=== PATIENT | female | born 1940 | race Caucasian/White ===

== ENCOUNTER → 2017-05-14 | Outpatient (CLI) | payer MEDICARE, BC ==
--- NOTE | 2017-05-16 09:19 | MM ---
Reason for exam: screening (asymptomatic). Last mammogram was performed 1 year and 8 months ago. History: Patient is postmenopausal. Family history of breast cancer in maternal grandmother at age 40. Physical Findings: A clinical breast exam by your physician is recommended on an annual basis and results should be correlated with mammographic findings. MG Screening Mammo w CAD Bilateral CC and MLO view(s) were taken. Prior study comparison: September 06, 2015, bilateral MG screening mammo w CAD. The breast tissue is heterogeneously dense. This may lower the sensitivity of mammography. No significant changes when compared with prior studies. ASSESSMENT: Benign, BI-RAD 2 RECOMMENDATION: Routine screening mammogram of both breasts in 1 year.
== END | disposition home or self-care (01) ==
LOC: RADMAMWWP 13:03
PROVIDERS: ATTEND Internal Medicine Geriatric Medicine
DX: Z12.31 Encounter for screening mammogram for malignant neoplasm of breast (principal)

== ENCOUNTER 2017-06-25 14:27 | Inpatient (IN) | payer MEDICARE, BC ==
[2017-06-25] MEDS ORDERED: SODIUM CHLORIDE 0.9% 1,000 ML IV STA (15:13)
--- NOTE | 2017-06-25 15:18 | ED ---
General Adult HPI - General Source: patient, family, RN notes reviewed Mode of arrival: wheelchair Limitations: no limitations <Wander Betancur - Last Filed: 06/25/17 15:14> <Wale Tenorio - Last Filed: 06/25/17 18:55> - General Chief complaint: Dizziness Stated complaint: abdominal pain/near syncope-sent by Dr. Bojorquez Time Seen by Provider: 06/25/17 15:04 - History of Present Illness Initial comments: Patient is a pleasant 76-year-old female presenting to the emergency department following 2 near-syncopal episodes. First episode occurred this morning following shower. Second episode occurred in the doctor's office. Patient feels symptom-free at this time. Patient does get dizzy with upright position. Patient has had 2 episodes of diarrhea. No vomiting. Family is concerned the patient has been more concerned since her knee surgery a few weeks ago. Patient has not been taking her medications. Patient has not been eating much. Patient has not been drinking much. Patient denies any chest pain or dyspnea. No abdominal pain. Patient states she did not fully pass out. (Wander Betancur) - Related Data Home Medications Medication Instructions Recorded Confirmed Aspirin 81 mg PO DAILY 10/28/14 06/25/17 Carvedilol [Coreg] 6.25 mg PO BID 10/28/14 06/25/17 Hydrochlorothiazide 25 mg PO DAILY 10/28/14 06/25/17 Simvastatin [Zocor] 20 mg PO W/SUPPER 10/28/14 06/25/17 Allergies Allergy/AdvReac Type Severity Reaction Status Date / Time Iodine and Iodide Containing Allergy Unknown Verified 06/25/17 15:08 Produc Penicillins Allergy Rash/Hives Verified 06/25/17 15:08 Sulfa (Sulfonamide Allergy Rash/Hives Verified 06/25/17 15:08 Antibiotics) codeine AdvReac Nausea & Verified 06/25/17 15:08 Vomiting Pain meds AdvReac Unknown Uncoded 06/25/17 15:08 Review of Systems ROS Other: All systems not noted in ROS Statement are negative. Constitutional: Denies: fever Eyes: Denies: eye pain ENT: Denies: ear pain Respiratory: Denies: cough, dyspnea Cardiovascular: Denies: chest pain Endocrine: Denies: fatigue Gastrointestinal: Reports: diarrhea. Denies: abdominal pain, nausea Genitourinary: Denies: dysuria Musculoskeletal: Denies: back pain Skin: Denies: rash <Wander Betancur Last Filed: 06/25/17 15:14> ROS Other: All systems not noted in ROS Statement are negative. <Wale Tenorio - Last Filed: 06/25/17 18:55> ROS Statement: Those systems with pertinent positive or pertinent negative responses have been documented in the HPI. Past Medical History Past Medical History: Hypertension Additional Past Medical History / Comment(s): heart murmer,arthritis, concussion History of Any Multi-Drug Resistant Organisms: None Reported Past Surgical History: Back Surgery, Hysterectomy, Joint Replacement, Tonsillectomy Additional Past Surgical History / Comment(s): disectomy, cataracts Additional Past Anesthesia/Blood Transfusion Reaction / Comment(s): wakes up very slow, "does not take a lot" Past Psychological History: No Psychological Hx Reported Smoking Status: Never smoker Past Alcohol Use History: None Reported Past Drug Use History: None Reported - Past Family History Brother(s) Family Medical History: Cancer <Wander Betancur Filed: 06/25/17 15:14> General Exam Limitations: no limitations General appearance: alert, in no apparent distress Head exam: Present: atraumatic Eye exam: Present: normal appearance, PERRL, EOMI. Absent: nystagmus ENT exam: Present: normal oropharynx Neck exam: Present: normal inspection Respiratory exam: Present: normal lung sounds bilaterally Cardiovascular Exam: Present: regular rate, normal rhythm Expanded Peripheral pulses: 2+: Radial (R), Radial (L), Dorsalis Pedis (R), Dorsalis Pedis (L) GI/Abdominal exam: Present: soft. Absent: distended, tenderness Extremities exam: Present: normal inspection. Absent: pedal edema, calf tenderness Neurological exam: Present: alert, CN II-XII intact. Absent: motor sensory deficit Expanded Patient oriented to: Present: person, place. Absent: time (Believes the month is May.) Speech: Present: fluid speech Cranial nerves: EOM's Intact: Normal Sensory exam: Upper Extremity Light Touch: Normal, Lower Extremity Light Touch: Normal Motor strength exam: RUE: 5, LUE: 5, RLE: 5, LLE: 5 Psychiatric exam: Present: normal affect, normal mood Skin exam: Present: normal color <Wander Betancur Filed: 06/25/17 15:14> Vital Signs 06/25/17 06/25/17 06/25/17 14:31 15:59 16:32 Temperature 98.2 F Pulse Rate 69 67 Pulse Rate [ 70 Sitting Field Trainer] Pulse Rate [ 84 Standing Field Trainer ] Pulse Rate [ 68 Supine Field Trainer] Respiratory 18 19 Rate Blood Pressure 185/115 188/79 Blood Pressure 190/77 [Right Arm Sitting] Blood Pressure 196/80 [Right Arm Standing] Blood Pressure 168/74 [Right Arm Supine] O2 Sat by Pulse 98 99 Oximetry 06/25/17 06/25/17 17:30 18:44 Temperature Pulse Rate 66 72 Pulse Rate [ Sitting Field Trainer] Pulse Rate [ Standing Field Trainer ] Pulse Rate [ Supine Field Trainer] Respiratory 19 Rate Blood Pressure 184/78 186/96 Blood Pressure [Right Arm Sitting] Blood Pressure [Right Arm Standing] Blood Pressure [Right Arm Supine] O2 Sat by Pulse 99 Oximetry EKG Findings - EKG Comments: EKG Findings:: Normal sinus rhythm 67. MA 176. QRS 88. QT 418. QTC 441. Normal axis. Normal QRS. No acute ST change. <Wander Betancur - Last Filed: 06/25/17 15:14> Medical Decision Making <Wander Betancur - Last Filed: 06/25/17 15:14> - Lab Data Result diagrams: 06/25/17 14:58 06/25/17 14:58 - Radiology Data Radiology results: report reviewed (I did review the imaging and reports no acute evidence of PE.), image reviewed <Wale Tenorio - Last Filed: 06/25/17 18:55> - Medical Decision Making the patient was endorsed to me by Dr. Betancur at our shift change pending CAT scan. Patient's CAT scan shows no acute findings I did discuss the findings with the patient family members as well as with the covering physician for Dr. Bojorquez patient will be admitted for evaluation of near-syncope weakness and dehydration patient does have some hyponatremia. (Wale Tenorio) - Lab Data Lab Results 06/25/17 06/25/17 06/25/17 Range/Units 14:58 14:58 14:58 WBC 9.8 (3.8-10.6) k/uL RBC 4.01 (3.80-5.40) m/uL Hgb 12.0 (11.4-16.0) gm/dL Hct 35.6 (34.0-46.0) % MCV 88.9 (80.0-100.0) fL MCH 30.0 (25.0-35.0) pg MCHC 33.7 (31.0-37.0) g/dL RDW 15.0 (11.5-15.5) % Plt Count 337 (150-450) k/uL Neutrophils % 76 % Lymphocytes % 14 % Monocytes % 7 % Eosinophils % 1 % Basophils % 0 % Neutrophils # 7.5 (1.3-7.7) k/uL Lymphocytes # 1.3 (1.0-4.8) k/uL Monocytes # 0.7 (0-1.0) k/uL Eosinophils # 0.1 (0-0.7) k/uL Basophils # 0.0 (0-0.2) k/uL PT (9.0-12.0) sec INR (<1.2) APTT (22.0-30.0) sec D-Dimer (<0.60) mg/L FEU Sodium 128 L (137-145) mmol/L Potassium 3.4 L (3.5-5.1) mmol/L Chloride 94 L (98-107) mmol/L Carbon Dioxide 24 (22-30) mmol/L Anion Gap 10 mmol/L BUN 11 (7-17) mg/dL Creatinine 0.66 (0.52-1.04) mg/dL Est GFR (MDRD) Af Amer >60 (>60 ml/min/1.73 sqM) Est GFR (MDRD) Non-Af >60 (>60 ml/min/1.73 sqM) Glucose 101 H (74-99) mg/dL Calcium 9.3 (8.4-10.2) mg/dL Total Bilirubin 0.6 (0.2-1.3) mg/dL AST 27 (14-36) U/L ALT 51 (9-52) U/L Alkaline Phosphatase 99 (38-126) U/L Total Creatine Kinase 40 (30-135) U/L CK-MB (CK-2) 0.7 (0.0-2.4) ng/mL CK-MB (CK-2) Rel Index 1.8 Troponin I <0.012 (0.000-0.034) ng/mL Total Protein 6.5 (6.3-8.2) g/dL Albumin 4.0 (3.5-5.0) g/dL Urine Color Urine Appearance (Clear) Urine pH (5.0-8.0) Ur Specific [place] (1.001-1.035) Urine Protein (Negative) Urine Glucose (UA) (Negative) Urine Ketones (Negative) Urine Blood (Negative) Urine Nitrite (Negative) Urine Bilirubin (Negative) Urine Urobilinogen (<2.0) mg/dL Ur Leukocyte Esterase (Negative) 06/25/17 06/25/17 Range/Units 14:58 17:44 WBC (3.8-10.6) k/uL RBC (3.80-5.40) m/uL Hgb (11.4-16.0) gm/dL Hct (34.0-46.0) % MCV (80.0-100.0) fL MCH (25.0-35.0) pg MCHC (31.0-37.0) g/dL RDW (11.5-15.5) % Plt Count (150-450) k/uL Neutrophils % % Lymphocytes % % Monocytes % % Eosinophils % % Basophils % % Neutrophils # (1.3-7.7) k/uL Lymphocytes # (1.0-4.8) k/uL Monocytes # (0-1.0) k/uL Eosinophils # (0-0.7) k/uL Basophils # (0-0.2) k/uL PT 10.9 (9.0-12.0) sec INR 1.1 (<1.2) APTT 23.9 (22.0-30.0) sec D-Dimer 5.76 H (<0.60) mg/L FEU Sodium (137-145) mmol/L Potassium (3.5-5.1) mmol/L Chloride (98-107) mmol/L Carbon Dioxide (22-30) mmol/L Anion Gap mmol/L BUN (7-17) mg/dL Creatinine (0.52-1.04) mg/dL Est GFR (MDRD) Af Amer (>60 ml/min/1.73 sqM) Est GFR (MDRD) Non-Af (>60 ml/min/1.73 sqM) Glucose (74-99) mg/dL Calcium (8.4-10.2) mg/dL Total Bilirubin (0.2-1.3) mg/dL AST (14-36) U/L ALT (9-52) U/L Alkaline Phosphatase (38-126) U/L Total Creatine Kinase (30-135) U/L CK-MB (CK-2) (0.0-2.4) ng/mL CK-MB (CK-2) Rel Index Troponin I (0.000-0.034) ng/mL Total Protein (6.3-8.2) g/dL Albumin (3.5-5.0) g/dL Urine Color Colorless Urine Appearance Clear (Clear) Urine pH 7.0 (5.0-8.0) Ur Specific [place] 1.017 (1.001-1.035) Urine Protein Negative (Negative) Urine Glucose (UA) Negative (Negative) Urine Ketones 1+ H (Negative) Urine Blood Negative (Negative) Urine Nitrite Negative (Negative) Urine Bilirubin Negative (Negative) Urine Urobilinogen <2.0 (<2.0) mg/dL Ur Leukocyte Esterase Negative (Negative) Disposition <Wander Betancur - Last Filed: 06/25/17 15:14> <Wale Tenorio - Last Filed: 06/25/17 18:55> Clinical Impression: Near syncope, Dehydration, Hyponatremia Disposition: ADMITTED IP TO THIS HOSP Condition: Stable Referrals: Manjeet Bojorquez MD [Primary Care Provider] - 1-2 days
[2017-06-25 15:36] LABS: Basophils % (A) 0 %; CH 30.1; Eosinophils # (A) 0.1 k/uL (0-0.7); Eosinophils % (A) 1 %; HCT 35.6 % (34.0-46.0); HDW 3.12; Luc # (Auto) 0.18; Luc % (Auto) 2; Lymphocytes # (A) 1.3 k/uL (1.0-4.8); Lymphocytes % (A) 14 %; MCHC 33.7 g/dL (31.0-37.0); MCV 88.9 fL (80.0-100.0); Mean Platelet Volume 7.8; Monocytes # (A) 0.7 k/uL (0-1.0); Monocytes % (A) 7 %; Neutrophils # (A) 7.5 k/uL (1.3-7.7); Neutrophils % (A) 76 %; RBC 4.01 m/uL (3.80-5.40); WBC 9.8 k/uL (3.8-10.6)
[2017-06-25 15:45] LABS: ALT 51 U/L (9-52); AST 27 U/L (14-36); Alkaline Phosphatase 99 U/L (38-126); Anion Gap 10 mmol/L; Blood Urea Nitrogen 11 mg/dL (7-17); Calcium 9.3 mg/dL (8.4-10.2); Carbon Dioxide 24 mmol/L (22-30); Chloride 94 mmol/L (98-107); Glucose 101 mg/dL (74-99); Non-African American GFR(MDRD) >60 (>60 ml/min/1.73 sqM); Potassium 3.4 mmol/L (3.5-5.1); Sodium 128 mmol/L (137-145); Total Bilirubin 0.6 mg/dL (0.2-1.3); Total Protein 6.5 g/dL (6.3-8.2)
[2017-06-25 15:50] LABS: INR 1.1 (<1.2); Partial Thromboplastin Time 23.9 sec (22.0-30.0); Prothrombin Time 10.9 sec (9.0-12.0)
[2017-06-25 15:52] LABS: Creatine Kinase 40 U/L (30-135)
[2017-06-25 16:05] LABS: Creatine Kinase MB 0.7 ng/mL (0.0-2.4); Troponin I <0.012 ng/mL (0.000-0.034)
--- NOTE | 2017-06-25 16:23 | CT ---
EXAMINATION TYPE: CT brain wo con DATE OF EXAM: 06/25/2017 COMPARISON: 10/09/2015 HISTORY: Syncope. CT DLP: 945.50 mGycm. Automated Exposure Control for Dose Reduction was Utilized. TECHNIQUE: CT scan of the head is performed without contrast. FINDINGS: Multiple patchy areas of hypoattenuation are seen within the peripheral periventricular a nd subcortical white matter. Few these are more confluent within the left frontal lobe and within the right monreal radiata related to old lacunar injuries. No suspicious extra axial fluid collection is identified. There is symmetric prominence of the peripheral sulci and ventricular system compatible w ith age-related volume loss. No evidence of intracranial hemorrhage, midline shift or mass effect is identified. There is atherosclerosis of the intracranial vasculature. Calvarium is intact. Paranasal sinuses are well aerated. Slight rightward nasal septal deviation is incidentally noted. Mastoid air cells are also well aerated. IMPRESSION: 1. No acute intracranial hemorrhage, mass effect, or midline shift is seen. 2. Moderate burden nonspecific white matter changes old lacunar injuries of the left frontal lobe and right frontal monreal radiata. 3. Age-related supratentorial volume loss.
[2017-06-25] MEDS ORDERED: FAMOTIDINE 20 MG/2 ML VIAL IV STA (16:31)
[2017-06-25] MEDS ORDERED: diphenhydrAMINE 50 MG/ML 1 ML VIAL IVP STA (16:31)
[2017-06-25] MEDS ORDERED: RX INFO: IV CONTRAST WAS GIVEN 1 EACH MISC MISCELLANE PRN (16:31)
[2017-06-25] MEDS ORDERED: methylPREDNISolone SOD SUCCI 125 MG/2 ML VIAL IV STA (16:31)
--- NOTE | 2017-06-25 16:31 | XR ---
EXAMINATION TYPE: XR chest 2V DATE OF EXAM: 06/25/2017 COMPARISON: 11/19/2012 HISTORY: Syncope TECHNIQUE: Frontal and lateral views of the chest are obtained. FINDINGS: There is no focal air space opacity, pleural effusion, or pneumothorax seen. The cardiac silhouette size is within normal limits. The osseous structures are intact. There is generalized os seous demineralization present. Prominence of the aortic arch is similar in comparison to the prior e xam of 2012. IMPRESSION: No acute cardiopulmonary process.
--- NOTE | 2017-06-25 17:16 | CT ---
EXAMINATION TYPE: CT angio chest DATE OF EXAM: 06/25/2017 5:09 PM COMPARISON: NONE HISTORY: Elevated d-dimer. CT DLP: 162.80 mGycm Automated exposure control for dose reduction was used. CONTRAST: CTA scan of the thorax is performed with IV Contrast, patient injected with 76 mL of Omnipaque 350, p ulmonary embolism protocol. There are 3-D post processed images.. FINDINGS: There is some pleural thickening at the lung apices. There is no evidence of a pulmonary mass. Heart is enlarged. There is no pleural effusion. There is no pericardial effusion. I see no filling defects in the pulmonary arteries. Thoracic aorta is atheromatous. Ascending aorta m easures 3.4 cm. There is no evidence of aortic dissection. There is a 2.5 cm rounded hypodense area i n the left lobe of the liver that is nonspecific. IMPRESSION: CARDIOMEGALY. ATHEROSCLEROTIC VASCULAR DISEASE. NO EVIDENCE OF PULMONARY EMBOLISM. BILATERAL APICAL P LEURAL SCARRING. ROUNDED HYPODENSE LIVER LESION OF UNCERTAIN SIGNIFICANCE.
[2017-06-25 17:55] LABS: Appearance,Urine Clear (Clear); Bilirubin,Urine Negative (Negative); Glucose,Urine (UA) Negative (Negative); Ketones,Urine 1+ (Negative); Leukocyte Esterase,Urine Negative (Negative); Nitrite,Urine Negative (Negative); Protein,Urine Negative (Negative); Specific Gravity,Urine 1.017 (1.001-1.035); UA Billing (MACRO vs. MICRO) CHEM; Urobilinogen,Urine <2.0 mg/dL (<2.0)
[2017-06-25] MEDS ORDERED: NALOXONE 0.4 MG/ML 1 ML VIAL IV PRN (18:55)
[2017-06-25] MEDS ORDERED: SODIUM CHLORIDE 0.9% 1,000 ML IV ONE (19:37)
[2017-06-25] MEDS ORDERED: cloNIDine HCL 0.1 MG TAB PO STA (20:16)
[2017-06-25] MEDS: CARVEDILOL 6.25 MG TAB PO SCH (21:29)
[2017-06-25] MEDS: SODIUM CHLORIDE 0.9% 1,000 ML IV SCH (21:30)
[2017-06-25 22:14] LABS: Anion Gap 8 mmol/L; Blood Urea Nitrogen 10 mg/dL (7-17); Calcium 9.1 mg/dL (8.4-10.2); Carbon Dioxide 23 mmol/L (22-30); Chloride 97 mmol/L (98-107); Glucose 153 mg/dL (74-99); Non-African American GFR(MDRD) >60 (>60 ml/min/1.73 sqM); Potassium 3.4 mmol/L (3.5-5.1); Sodium 128 mmol/L (137-145)
[2017-06-26] MEDS: CARVEDILOL 6.25 MG TAB PO SCH ×2 (08:55→20:48)
[2017-06-26] MEDS: ENOXAPARIN 40 MG/0.4 ML SYRINGE SQ SCH (08:55)
[2017-06-26] MEDS: ASPIRIN 81 MG PO SCH (08:55)
[2017-06-26] MEDS ORDERED: HYDROCHLOROTHIAZIDE 25 MG TAB PO SCH (09:00)
--- NOTE | 2017-06-26 10:28 | ECHOF ---
Referral Reason:syncope MEASUREMENTS -------- HEIGHT: 162.6 cm WEIGHT: 52.6 kg BP: 152/67 IVSd: 1.1 cm (0.6 - 1.1) LVIDd: 3.7 cm (3.9 - 5.3) LVPWd: 1.1 cm (0.6 - 1.1) IVSs: 1.5 cm LVIDs: 2.6 cm LVPWs: 1.3 cm LA Diam: 3.5 cm (2.7 - 3.8) LAESV Index (A-L): 32.12 ml/m Ao Diam: 3.0 cm (2.0 - 3.7) AV Cusp: 2.1 cm (1.5 - 2.6) EPSS: 0.2 cm MV E Jarret: 0.77 m/s MV DecT: 264 ms MV A Jarret: 0.78 m/s MV E/A Ratio: 0.99 AR PHT: 323 ms RAP: 5.00 mmHg RVSP: 32.53 mmHg MV EF SLOPE: 58.25 mm/s (70 - 150) MV EXCURSION: 1.03 cm (> 18.000) FINDINGS -------- Sinus rhythm. This was a technically good study. The left ventricular size is normal. Left ventricular wall thickness is normal. Overall left vent ricular systolic function is normal with, an EF between 55 - 60 %. The right ventricle is normal in size. LA is midly dilated 29-33ml/m2. The right atrium is normal in size. The aortic valve is trileaflet and appears structurally normal. There is moderate aortic regurgitat ion. The mitral valve is normal. Mild mitral regurgitation is present. Moderate tricuspid regurgitation present. Right ventricular systolic pressure is normal at < 35 mmH g. Trace/mild (physiologic) pulmonic regurgitation. The aortic root size is normal. Normal inferior vena cava with normal inspiratory collapse consistent with estimated right atrial pre ssure of 5 mmHg. There is no pericardial effusion. CONCLUSIONS -------- 1. Sinus rhythm. 2. This was a technically good study. 3. Left ventricular wall thickness is normal. 4. Overall left ventricular systolic function is normal with, an EF between 55 - 60 %. 5. LA is midly dilated 29-33ml/m2. 6. The aortic valve is trileaflet and appears structurally normal. 7. There is moderate aortic regurgitation. 8. Mild mitral regurgitation is present. 9. Moderate tricuspid regurgitation present. 10. Right ventricular systolic pressure is normal at < 35 mmHg. 11. Trace/mild (physiologic) pulmonic regurgitation. 12. The aortic root size is normal. 13. Normal inferior vena cava with normal inspiratory collapse consistent with estimated right atrial pressure of 5 mmHg. 14. There is no pericardial effusion. STORE CONSULTANT: JUAN A Barber
[2017-06-26] MEDS ORDERED: RX INFO: IV CONTRAST WAS GIVEN 1 EACH MISC MISCELLANE PRN (12:41)
[2017-06-26] MEDS ORDERED: methylPREDNISolone SOD SUCCI 125 MG/2 ML VIAL IV STA (12:45)
[2017-06-26] MEDS ORDERED: FAMOTIDINE 20 MG/2 ML VIAL IV STA (12:45)
[2017-06-26] MEDS ORDERED: diphenhydrAMINE 50 MG/ML 1 ML VIAL IVP STA (12:45)
[2017-06-26 13:28] LABS: ALT 47 U/L (9-52); AST 24 U/L (14-36); Alkaline Phosphatase 94 U/L (38-126); Anion Gap 11 mmol/L; Blood Urea Nitrogen 11 mg/dL (7-17); Calcium 9.2 mg/dL (8.4-10.2); Carbon Dioxide 23 mmol/L (22-30); Chloride 100 mmol/L (98-107); Glucose 106 mg/dL (74-99); Non-African American GFR(MDRD) >60 (>60 ml/min/1.73 sqM); Potassium 3.6 mmol/L (3.5-5.1); Sodium 134 mmol/L (137-145); Total Bilirubin 0.6 mg/dL (0.2-1.3); Uric Acid 3.5 mg/dL (3.7-7.4)
[2017-06-26] MEDS: SODIUM CHLORIDE 0.9% 1,000 ML IV SCH ×2 (13:50→20:48)
--- NOTE | 2017-06-26 15:35 | P.HPIM ---
History of Present Illness H&P Date: 06/26/17 Chief Complaint: Near syncope 76 years old female with past medical history of hypertension, hyperlipidemia, history of concussion and short-term memory loss presents with 2 episodes of near syncope. The first episode occurred in shower yesterday followed by another episode at Dr. Bojorquez's office. On my evaluation patient was symptom-free. Family bedside has noticed that patient has worsening confusion for the past 2 weeks. Patient underwent left knee replacement 2 weeks ago, family has noticed increased confusion and worsening short-term memory loss for the past 1 week. Patient endorses intermittent epigastric abdominal pain associated with nausea and intermittent diarrhea. Family states patient forgets to eat or drink. She lives alone and her come by to walk the dog. Patient does not come out of her house but does state that she walks her dog every day which is negated by the family. Patient has to be reminded about the previous incidences and has been seen confabulating multiple times during the encounter. Labs in the ER suggested a sodium of 128, potassium 2.4, glucose of 101, serum osmolarity 272, normal uric acid level. Urinalysis is negative for any infection. Echo ordered suggested an EF of 55-60 % with moderate aortic regurgitation and moderate tricuspid regurgitation with normal pressures of the right ventricle. Patient underwent CTA of the chest to rule out pulmonary embolism which was negative. Brain CT suggestive of moderate border nonspecific white matter changes which correlate with old left no injuries on the left frontal lobe and right frontal monreal radiata. EKG is normal with normal troponin. Orthostatic vitals were ordered. Patient's presentation appears to be related to dehydration but since all like a new injuries present in the CT head and patient's multiple episodes of near syncope , CTA head and neck ordered to rule out any plaque deposition. Neurology consulted Review of Systems Constitutional: Denies chills, Denies fever, Denies lethargy, Denies malaise, Denies poor appetite, Denies weakness, Denies weight loss Eyes: denies decreased vision, denies diplopia, denies discharge, denies pain Ears: deny: decreased hearing Ears, nose, mouth and throat: Denies dental pain, Denies headache, Denies nasal discharge, Denies nose pain Cardiovascular: Denies chest pain, Denies decreased exercise tolerance, Denies edema, Denies high blood pressure, Denies irregular heart beat, Denies palpitations, Denies paroxysmal nocturnal dyspnea, Denies rapid heart beat, Denies shortness of breath Respiratory: Denies congestion, Denies cough, Denies cough with sputum, Denies dyspnea, Denies home oxygen, Denies wheezing Gastrointestinal: Denies abdominal pain, Denies change in bowel habits, Denies coffee ground emesis, Denies early satiety, Denies excessive gas, Denies heartburn, Denies hematemesis, Denies hematochezia, Denies loss of appetite, Denies nausea, Denies vomiting Genitourinary: Denies dysuria, Denies flank pain, Denies kidney stones, Denies menorrhagia, Denies urgency, Denies urinary frequency Musculoskeletal: Denies gait dysfunction, Denies limitation of motion, Denies morning stiffness, Denies muscle cramps Integumentary: Denies rash, Denies wounds, Denies brittle nails, Denies change in hair/nails, Denies darkening of skin Neurological: Denies balance difficulties, Denies change in speech, Denies double vision, Denies gait dysfunction, Denies loss of vision, Denies motor disturbance, Denies numbness, Denies paralysis, Denies paresthesias, Denies seizures Psychiatric: Denies anxiety, Denies depression Endocrine: Denies excessive sweating, Denies excessive thirst, Denies high blood sugars, Denies palpitations Hematologic/Lymphatic: Denies easy bruising, Denies lymphadenopathy Past Medical History Past Medical History: Hypertension Additional Past Medical History / Comment(s): heart murmer,arthritis, concussion History of Any Multi-Drug Resistant Organisms: None Reported Past Surgical History: Back Surgery, Hysterectomy, Joint Replacement, Tonsillectomy Additional Past Surgical History / Comment(s): disectomy, cataracts Additional Past Anesthesia/Blood Transfusion Reaction / Comment(s): wakes up very slow, "does not take a lot" Past Psychological History: No Psychological Hx Reported Smoking Status: Never smoker Past Alcohol Use History: None Reported Past Drug Use History: None Reported - Past Family History Brother(s) Family Medical History: Cancer Medications and Allergies Home Medications Medication Instructions Recorded Confirmed Type Aspirin 81 mg PO DAILY 10/28/14 06/25/17 History Carvedilol [Coreg] 6.25 mg PO BID 10/28/14 06/25/17 History Hydrochlorothiazide 25 mg PO DAILY 10/28/14 06/25/17 History Simvastatin [Zocor] 20 mg PO W/SUPPER 10/28/14 06/25/17 History Allergies Allergy/AdvReac Type Severity Reaction Status Date / Time Iodine and Iodide Containing Allergy Unknown Verified 06/25/17 15:08 Produc Penicillins Allergy Rash/Hives Verified 06/25/17 15:08 Sulfa (Sulfonamide Allergy Rash/Hives Verified 06/25/17 15:08 Antibiotics) codeine AdvReac Nausea & Verified 06/25/17 15:08 Vomiting Pain meds AdvReac Unknown Uncoded 06/25/17 15:08 Physical Exam Vitals: Vital Signs Temp Pulse Pulse Pulse Pulse Resp BP 06/26/17 08:00 16 06/26/17 07:00 97.8 F 81 16 06/25/17 23:01 97.3 F L 62 18 06/25/17 21:26 96.5 F L 66 18 06/25/17 20:07 98.7 F 67 16 192/79 06/25/17 18:44 72 186/96 06/25/17 17:30 66 19 184/78 06/25/17 16:32 67 19 188/79 06/25/17 15:59 70 84 68 06/25/17 14:31 98.2 F 69 18 185/115 BP BP BP Pulse Ox 06/26/17 08:00 06/26/17 07:00 162/60 98 06/25/17 23:01 152/67 97 06/25/17 21:26 135/68 98 06/25/17 20:07 99 06/25/17 18:44 06/25/17 17:30 99 06/25/17 16:32 99 06/25/17 15:59 190/77 196/80 168/74 06/25/17 14:31 98 Intake and Output 06/25/17 06/26/17 06/26/17 22:59 06:59 14:59 Intake Total 480 Balance 480 Intake: Oral 480 Other: Voiding Method Toilet # Voids 3 Weight 53 kg Patient Weight 06/27/17 06:59 Weight 53 kg - Constitutional General appearance: cooperative, no acute distress, obese - EENT Eyes: anicteric sclerae, PERRLA, normal appearance, no nystagmus ENT: hearing grossly normal - Neck Neck: no lymphadenopathy, normal ROM, no other, no rigidity, no stridor, no thyromegaly - Respiratory Respiratory: bilateral: CTA, negative: diminished, dullness, rales, rhonchi - Cardiovascular Rhythm: regular Heart sounds: normal: S1, S2 Abnormal Heart Sounds: no systolic murmur, no diastolic murmur, no rub, no S3 Gallop, no S4 Gallop, no click, no other - Gastrointestinal General gastrointestinal: normal bowel sounds, soft - Integumentary Integumentary: no rash - Neurologic Neurologic: CNII-XII intact no focal deficit - Musculoskeletal Musculoskeletal: gait normal, strength equal bilaterally - Psychiatric Psychiatric: A&O x's 3, appropriate affect Results CBC & Chem 7: 06/25/17 14:58 06/26/17 12:56 Labs: Abnormal Lab Results - Last 24 Hours (Table) 06/25/17 06/25/17 06/25/17 Range/Units 14:58 14:58 17:44 D-Dimer 5.76 H (<0.60) mg/L FEU Sodium 128 L (137-145) mmol/L Potassium 3.4 L (3.5-5.1) mmol/L Chloride 94 L (98-107) mmol/L Glucose 101 H (74-99) mg/dL Osmolality (280-301) mosm/kg Urine Ketones 1+ H (Negative) 06/25/17 Range/Units 21:31 D-Dimer (<0.60) mg/L FEU Sodium 128 L (137-145) mmol/L Potassium 3.4 L (3.5-5.1) mmol/L Chloride 97 L (98-107) mmol/L Glucose 153 H (74-99) mg/dL Osmolality 272 L (280-301) mosm/kg Urine Ketones (Negative) Thrombosis Risk Factor Assmnt - DVT/VTE Prophylaxis DVT/VTE Prophylaxis: Pharmacologic Prophylaxis ordered - Choose All That Apply Each Factor Represents 1 point: History of prior major surgery (<1month) Other Risk Factors: Yes Each Risk Factor Represents 3 Points: Age 75 years or older Thrombosis Risk Factor Assessment Total Risk Factor Score: 4 Thrombosis Risk Factor Assessment Level: Moderate Risk Assessment and Plan Plan: #1 near syncopal likely secondary to dehydration other differential include acute stroke with CT brain suggestive of previous neck and her infarct changes - Continue baby aspirin and Lipitor 10 mg - Lipid panel ordered - CTA ordered for brain and neck #2 hyponatremia likely secondary to dehydration - Low serum osmolarity likely secondary to dehydration, continue fluid at 80 ML per hour Urine osmolality and urine sodium pending #3 hypertension continue Coreg ordered hydrochlorothiazide #4 hyperlipidemia controlled Lipitor 10 mg daily #5 GI prophylaxis continue Pepcid 20 mg by mouth daily DVT prophylaxis -continue Lovenox 40 mg daily CODE STATUS full code Disposition likely discharge tomorrow
--- NOTE | 2017-06-26 18:45 | CT ---
EXAMINATION TYPE: CT angio head neck DATE OF EXAM: 06/26/2017 COMPARISON: NONE HISTORY: Syncopal episodes CT DLP: 509 mGycm CONTRAST: Performed with IV Contrast, patient injected with 65 mL of Omnipaque 350. Combination Contrast CTA cervical carotids and [place] CTA cervical carotids with 3-D recons truction Contrast CTA of the cervical carotids was performed 3-D reconstruction imaging obtained at a separate workstation. Right carotid system: Mild plaque is seen of the right common carotid artery. There is mild plaque a lso noted at the carotid bulb and proximal ICA. No significant diameter reduction. ECA is patent. Right vertebral artery appears unremarkable. Left carotid system: Mild plaque is seen of the left common carotid artery. There is mild plaque als o noted at the carotid bulb and proximal ICS. No significant diameter reduction. ECA is patent. Lef t vertebral artery appears unremarkable. IMPRESSION: 1. No significant diameter reduction to account for the patient's symptoms. CTA [place] with 3-D reconstruction Contrast CTA of the [place] was performed 3-D reconstruction imaging obtained at a separate workstation. Vertebrobasilar system as well as intracranial portions of the internal carotid arteries and their ma mary tributaries are patent. I do not see evidence for sizable aneurysm or vascular malformation. Pl ease note MRI provides greater sensitivity and specificity. Visualized brain appears grossly unremar kable. IMPRESSION: 1. No siginificant abnormality.
[2017-06-26 20:10] LABS: Glucose,Whole Blood 185 mg/dL (75-99)
[2017-06-26] MEDS: ATORVASTATIN 10 MG TAB PO SCH (20:48)
[2017-06-27 08:02] VITALS: RESP 16
[2017-06-27] MEDS: ENOXAPARIN 40 MG/0.4 ML SYRINGE SQ SCH (09:31)
[2017-06-27] MEDS: CARVEDILOL 6.25 MG TAB PO SCH ×2 (09:31→20:51)
[2017-06-27] MEDS: ASPIRIN 81 MG PO SCH (09:31)
[2017-06-27] MEDS: SODIUM CHLORIDE 0.9% 1,000 ML IV SCH (09:31)
[2017-06-27] MEDS: FAMOTIDINE 20 MG TAB PO SCH (09:31)
[2017-06-27 10:21] LABS: ALT 45 U/L (9-52); AST 31 U/L (14-36); Alkaline Phosphatase 80 U/L (38-126); Anion Gap 9 mmol/L; Blood Urea Nitrogen 12 mg/dL (7-17); Calcium 8.9 mg/dL (8.4-10.2); Carbon Dioxide 24 mmol/L (22-30); Chloride 105 mmol/L (98-107); Glucose 109 mg/dL (74-99); Non-African American GFR(MDRD) >60 (>60 ml/min/1.73 sqM); Potassium 3.9 mmol/L (3.5-5.1); Sodium 138 mmol/L (137-145); Total Bilirubin 0.2 mg/dL (0.2-1.3); Total Protein 6.2 g/dL (6.3-8.2)
--- NOTE | 2017-06-27 12:15 | US ---
EXAMINATION TYPE: US venous doppler duplex LE LT DATE OF EXAM: 06/27/2017 8:04 AM COMPARISON: NONE CLINICAL HISTORY: edema, TKA 3 weeks ago. swelling in left knee, no h/o dvt, total knee 3 weeks ago SIDE PERFORMED: Left TECHNIQUE: The lower extremity deep venous system is examined utilizing real time linear array sonog subha with graded compression, doppler sonography and color-flow sonography. VESSELS IMAGED: External Iliac Vein (EIV) Common Femoral Vein Deep Femoral Vein Greater Saphenous Vein * Femoral Vein Popliteal Vein Small Saphenous Vein * Proximal Calf Veins (* superficial vessels) Grayscale, color doppler, spectral doppler imaging performed of the deep veins of the lower extremity . There is normal flow, compressibility, vascular waveforms. Left Leg: Appears negative for DVT IMPRESSION: No definite evidence for DVT at this time.
--- NOTE | 2017-06-27 15:25 | P.PN ---
Subjective Progress Note Date: 06/27/17 76 years old female with past medical history of hypertension, hyperlipidemia, history of concussion and short-term memory loss presents with 2 episodes of near syncope. The first episode occurred in shower yesterday followed by another episode at Dr. Bojorquez's office. On my evaluation patient was symptom-free. Family bedside has noticed that patient has worsening confusion for the past 2 weeks. Patient underwent left knee replacement 2 weeks ago, family has noticed increased confusion and worsening short-term memory loss for the past 1 week. Patient endorses intermittent epigastric abdominal pain associated with nausea and intermittent diarrhea. Family states patient forgets to eat or drink. She lives alone and her come by to walk the dog. Patient does not come out of her house but does state that she walks her dog every day which is negated by the family. Patient has to be reminded about the previous incidences and has been seen confabulating multiple times during the encounter. Labs in the ER suggested a sodium of 128, potassium 2.4, glucose of 101, serum osmolarity 272, normal uric acid level. Urinalysis is negative for any infection. Echo ordered suggested an EF of 55-60 % with moderate aortic regurgitation and moderate tricuspid regurgitation with normal pressures of the right ventricle. Patient underwent CTA of the chest to rule out pulmonary embolism which was negative. Brain CT suggestive of moderate border nonspecific white matter changes which correlate with old left no injuries on the left frontal lobe and right frontal monreal radiata. EKG is normal with normal troponin. Orthostatic vitals were ordered. Patient's presentation appears to be related to dehydration but since all like a new injuries present in the CT head and patient's multiple episodes of near syncope , CTA head and neck ordered to rule out any plaque deposition. Neurology consulted 06/27: Sodium is up to 138. Patient did have a bowel movement this morning. She worked with physical therapy and was happy with her progress. Family and social work has developed a plan for discharge to [facility] with plan for subacute rehab short-term and then her daughter will be staying with her temporarily. No new complaints today. Anticipate discharge tomorrow. Objective - Vital Signs Vital signs: Vital Signs Temp 97.6 F 06/27/17 07:00 Pulse 76 06/27/17 07:00 Resp 16 06/27/17 07:00 BP 184/70 06/27/17 07:00 Pulse Ox 99 06/27/17 07:00 Intake & Output 06/26/17 06/27/17 06/27/17 18:59 06:59 18:59 Intake Total 800 500 Balance 800 500 Weight 53 kg Intake: Oral 800 500 Other: Voiding Method Toilet Toilet # Voids 2 2 - Exam General appearance: cooperative, no acute distress, obese - EENT Eyes: anicteric sclerae, PERRLA, normal appearance, no nystagmus ENT: hearing grossly normal - Neck Neck: no lymphadenopathy, normal ROM, no other, no rigidity, no stridor, no thyromegaly - Respiratory Respiratory: bilateral: CTA, negative: diminished, dullness, rales, rhonchi - Cardiovascular Rhythm: regular Heart sounds: normal: S1, S2 Abnormal Heart Sounds: no systolic murmur, no diastolic murmur, no rub, no S3 Gallop, no S4 Gallop, no click, no other - Gastrointestinal General gastrointestinal: normal bowel sounds, soft - Integumentary Integumentary: no rash - Neurologic Neurologic: CNII-XII intact no focal deficit - Musculoskeletal Musculoskeletal: gait normal, strength equal bilaterally - Psychiatric Psychiatric: A&O x's 3, appropriate affect - Labs CBC & Chem 7: 06/25/17 14:58 06/27/17 09:30 Labs: Abnormal Lab Results - Last 24 Hours (Table) 06/26/17 06/26/17 06/26/17 Range/Units 12:56 14:45 20:08 Sodium 134 L (137-145) mmol/L Glucose 106 H (74-99) mg/dL POC Glucose (mg/dL) 185 H (75-99) mg/dL Uric Acid 3.5 L (3.7-7.4) mg/dL Ur Random Sodium 7 L (30-90) mmol/L Assessment and Plan Plan: #1 near syncopal likely secondary to dehydration other differential include acute stroke with CT brain suggestive of previous neck and her infarct changes - Continue baby aspirin and Lipitor 10 mg - Lipid panel ordered - CTA ordered for brain and neck #2 hyponatremia likely secondary to dehydration - Low serum osmolarity likely secondary to dehydration, continue fluid at 80 ML per hour Urine osmolality and urine sodium pending #3 hypertension continue Coreg ordered hydrochlorothiazide #4 hyperlipidemia controlled Lipitor 10 mg daily #5 GI prophylaxis continue Pepcid 20 mg by mouth daily DVT prophylaxis -continue Lovenox 40 mg daily CODE STATUS full code Discharge plan: Subacute rehab at [facility] or [facility] Impression and plan of care have been directed as dictated by the signing physician. Olivia Morgan nurse practitioner acting as scribe for signing physician.
[2017-06-27] MEDS: ATORVASTATIN 10 MG TAB PO SCH (16:58)
[2017-06-28] MEDS: SODIUM CHLORIDE 0.9% 1,000 ML IV SCH (07:29)
[2017-06-28 07:58] LABS: Anion Gap 5 mmol/L; Blood Urea Nitrogen 12 mg/dL (7-17); Calcium 8.8 mg/dL (8.4-10.2); Carbon Dioxide 28 mmol/L (22-30); Chloride 105 mmol/L (98-107); Glucose 84 mg/dL (74-99); Non-African American GFR(MDRD) >60 (>60 ml/min/1.73 sqM); Potassium 3.6 mmol/L (3.5-5.1); Sodium 138 mmol/L (137-145)
[2017-06-28 08:36] VITALS: BP 193/72; PULSE 64; TEMP 97.2
[2017-06-28] MEDS: ENOXAPARIN 40 MG/0.4 ML SYRINGE SQ SCH (09:06)
[2017-06-28] MEDS: FAMOTIDINE 20 MG TAB PO SCH (09:07)
[2017-06-28] MEDS: ASPIRIN 81 MG PO SCH (09:07)
[2017-06-28] MEDS: CARVEDILOL 6.25 MG TAB PO SCH (09:07)
--- NOTE | 2017-06-28 12:23 | P.DS ---
Providers Date of admission: 06/25/17 18:56 Expected date of discharge: 06/28/17 Attending physician: Beatris Bansal MD Primary care physician: Manjeet Bojorquez [facility] Course: 76 years old female with past medical history of hypertension, hyperlipidemia, history of concussion and short-term memory loss presents with 2 episodes of near syncope. The first episode occurred in shower yesterday followed by another episode at Dr. Bojorquez's office. On my evaluation patient was symptom-free. Family bedside has noticed that patient has worsening confusion for the past 2 weeks. Patient underwent left knee replacement 2 weeks ago, family has noticed increased confusion and worsening short-term memory loss for the past 1 week. Patient endorses intermittent epigastric abdominal pain associated with nausea and intermittent diarrhea. Family states patient forgets to eat or drink. She lives alone and her come by to walk the dog. Patient does not come out of her house but does state that she walks her dog every day which is negated by the family. Patient has to be reminded about the previous incidences and has been seen confabulating multiple times during the encounter. Labs in the ER suggested a sodium of 128, potassium 2.4, glucose of 101, serum osmolarity 272, normal uric acid level. Urinalysis is negative for any infection. Echo ordered suggested an EF of 55-60 % with moderate aortic regurgitation and moderate tricuspid regurgitation with normal pressures of the right ventricle. Patient underwent CTA of the chest to rule out pulmonary embolism which was negative. Brain CT suggestive of moderate border nonspecific white matter changes which correlate with old left no injuries on the left frontal lobe and right frontal monreal radiata. EKG is normal with normal troponin. Orthostatic vitals were ordered. Patient's presentation appears to be related to dehydration but since all like a new injuries present in the CT head and patient's multiple episodes of near syncope , CTA head and neck ordered to rule out any plaque deposition. Neurology consulted 06/27: Sodium is up to 138. Patient did have a bowel movement this morning. She worked with physical therapy and was happy with her progress. Family and social work has developed a plan for discharge to [facility] with plan for subacute rehab short-term and then her daughter will be staying with her temporarily. No new complaints today. Anticipate discharge tomorrow. 06/28: CTA of the neck showed no significant reduction in 20 account for patient' s symptoms. CTA of the [place] showed no significant abnormality. Ultrasound of the left lower extremity was negative for DVT. Echocardiogram reveals EF of 55-60%, moderate aortic regurgitation, mild mitral regurgitation, moderate tricuspid regurgitation. Repeat sodium is again at 138. IV fluids will be discontinued. Patient will be discharged to subacute rehab today in stable condition. Discharge diagnoses: #1 near syncopal likely secondary to dehydration #2 hyponatremia likely secondary to dehydration #3 hypertension #4 hyperlipidemia controlled Discharge plan: Subacute rehab at [facility] or [facility] Impression and plan of care have been directed as dictated by the signing physician. Olivia Morgan nurse practitioner acting as scribe for signing physician. Patient Condition at Discharge: Good Plan - Discharge Summary Discharge Rx Participant: No New Discharge Prescriptions: Continue Simvastatin [Zocor] 20 mg PO W/SUPPER Aspirin 81 mg PO DAILY Carvedilol [Coreg] 6.25 mg PO BID Discontinued Hydrochlorothiazide 25 mg PO DAILY Discharge Medication List Aspirin 81 mg PO DAILY 10/28/14 [History] Carvedilol [Coreg] 6.25 mg PO BID 10/28/14 [History] Simvastatin [Zocor] 20 mg PO W/SUPPER 10/28/14 [History] Follow up Appointment(s)/Referral(s): Manjeet Bojorquez MD [Primary Care Provider] - 1 Week (after discharge from ECF ) Discharge Disposition: TRANSFER TO SNF/ECF
== END 2017-06-28 14:08 | DRG 641 ==
LOC: EC 14:27 → 4MS4W 18:56
PROVIDERS: ADMIT Internal Medicine; ATTEND Internal Medicine
DX: E86.0 Dehydration (principal); I08.1 Rheumatic disorders of both mitral and tricuspid valves; F06.8 Other specified mental disorders due to known physiological condition; I10 Essential (primary) hypertension; E87.1 Hypo-osmolality and hyponatremia; E78.5 Hyperlipidemia, unspecified; M19.91 Primary osteoarthritis, unspecified site; Z79.82 Long term (current) use of aspirin; Z79.899 Other long term (current) drug therapy; Z96.652 Presence of left artificial knee joint; Z87.820 Personal history of traumatic brain injury; Z90.710 Acquired absence of both cervix and uterus; Z98.42 Cataract extraction status, left eye; Z98.41 Cataract extraction status, right eye; Z88.5 Allergy status to narcotic agent; Z88.0 Allergy status to penicillin; Z88.2 Allergy status to sulfonamides; Z91.041 Radiographic dye allergy status
CPT/HCPCS: 36415; 70450; 70496; 70498; 71020; 71275; 80048; 80053; 81003; 82550; 82553; 83605; 83930; 83935; 84300; 84484; 84550; 85025; 85379; 85610; 85730; 93005; 93306; 96361; 96374; 96375; 99285

== ENCOUNTER 2017-09-29 19:03 | Emergency (ER) | payer MEDICARE, BC ==
--- NOTE | 2017-09-29 19:26 | ED ---
General Adult HPI - General Chief complaint: Recheck/Abnormal Lab/Rx Stated complaint: Hypertension Time Seen by Provider: 09/29/17 19:15 Source: patient, EMS, RN notes reviewed Mode of arrival: EMS Limitations: no limitations - History of Present Illness Initial comments: Patient is a pleasant 77-year-old female presenting to the emergency department with concerns for hypertension. Patient states her blood pressure has been doing well and she only took For medication today. Patient then checked her blood pressure prior to arrival. Patient is unclear on the exact number however believes the top number was around 200. Patient otherwise has no complaints. Patient denies any chest pain or difficulty in breathing. Patient does deny palpitations. No weakness. No confusion. - Related Data Home Medications Medication Instructions Recorded Confirmed Aspirin 81 mg PO DAILY 10/28/14 09/29/17 Carvedilol [Coreg] 6.25 mg PO BID 10/28/14 09/29/17 Simvastatin [Zocor] 20 mg PO W/SUPPER 10/28/14 09/29/17 Lisinopril 15 mg PO DAILY 09/29/17 09/29/17 Previous Rx's Medication Instructions Recorded Hydrochlorothiazide 12.5 mg PO DAILY #6 capsule 09/29/17 Allergies Allergy/AdvReac Type Severity Reaction Status Date / Time Iodine and Iodide Containing Allergy Unknown Verified 09/29/17 19:35 Produc Penicillins Allergy Rash/Hives Verified 09/29/17 19:35 Sulfa (Sulfonamide Allergy Rash/Hives Verified 09/29/17 19:35 Antibiotics) codeine AdvReac Nausea & Verified 09/29/17 19:35 Vomiting Pain meds AdvReac Unknown Uncoded 06/25/17 15:08 Review of Systems ROS Statement: Those systems with pertinent positive or pertinent negative responses have been documented in the HPI. ROS Other: All systems not noted in ROS Statement are negative. Constitutional: Denies: fever Eyes: Denies: eye pain ENT: Denies: ear pain Respiratory: Denies: cough Cardiovascular: Denies: chest pain, palpitations Endocrine: Denies: fatigue Gastrointestinal: Denies: abdominal pain Genitourinary: Denies: dysuria Musculoskeletal: Denies: back pain Skin: Denies: lesions Neurological: Denies: weakness Past Medical History Past Medical History: Hypertension Additional Past Medical History / Comment(s): heart murmer,arthritis, concussion History of Any Multi-Drug Resistant Organisms: None Reported Past Surgical History: Back Surgery, Hysterectomy, Joint Replacement, Tonsillectomy Additional Past Surgical History / Comment(s): disectomy, cataracts Additional Past Anesthesia/Blood Transfusion Reaction / Comment(s): wakes up very slow, "does not take a lot" Past Psychological History: No Psychological Hx Reported Smoking Status: Never smoker Past Alcohol Use History: Occasional Past Drug Use History: None Reported - Past Family History Brother(s) Family Medical History: Cancer General Exam Limitations: no limitations General appearance: alert, in no apparent distress Head exam: Present: atraumatic Eye exam: Present: normal appearance, PERRL ENT exam: Present: normal oropharynx Neck exam: Present: normal inspection Respiratory exam: Present: normal lung sounds bilaterally. Absent: chest wall tenderness Cardiovascular Exam: Present: regular rate, normal rhythm GI/Abdominal exam: Present: soft. Absent: tenderness Extremities exam: Present: normal inspection. Absent: pedal edema, calf tenderness Neurological exam: Present: alert, oriented X3, CN II-XII intact. Absent: motor sensory deficit Expanded Patient oriented to: Present: person Speech: Present: fluid speech Cranial nerves: EOM's Intact: Normal Motor strength exam: RUE: 5, LUE: 5, RLE: 5, LLE: 5 Eye Response: (4) open spontaneously Motor Response: (6) obeys commands Verbal Response: (5) oriented Psychiatric exam: Present: normal affect, normal mood Skin exam: Present: normal color Course Vital Signs 09/29/17 09/29/17 19:29 20:16 Temperature 97.3 F L Pulse Rate 60 60 Respiratory 18 18 Rate Blood Pressure 208/82 194/81 O2 Sat by Pulse 98 97 Oximetry EKG Findings - EKG Comments: EKG Findings:: Normal sinus rhythm 60. MN 194. QRS 90. QT 412. QTC 412. Normal axis. Normal QRS. No acute ST change. Medical Decision Making - Medical Decision Making Patient reevaluated and resting comfortably in bed. No complaints at this time. Patient and updated on results and need for close follow-up. They do request hydrochlorothiazide which patient has previously been on and stopping lisinopril. They do feel patient is having side effects from lisinopril. Patient is informed that she'll be prescribed a few days of hydrochlorothiazide and highly recommended to follow-up with Dr. Bojorquez beginning of the week. - Lab Data Result diagrams: 09/29/17 19:47 09/29/17 19:47 Lab Results 09/29/17 09/29/17 09/29/17 Range/Units 19:47 19:47 19:47 WBC 6.3 (3.8-10.6) k/uL RBC 4.17 (3.80-5.40) m/uL Hgb 12.2 (11.4-16.0) gm/dL Hct 37.7 (34.0-46.0) % MCV 90.2 (80.0-100.0) fL MCH 29.3 (25.0-35.0) pg MCHC 32.5 (31.0-37.0) g/dL RDW 14.3 (11.5-15.5) % Plt Count 198 (150-450) k/uL Neutrophils % 56 % Lymphocytes % 29 % Monocytes % 8 % Eosinophils % 4 % Basophils % 1 % Neutrophils # 3.5 (1.3-7.7) k/uL Lymphocytes # 1.8 (1.0-4.8) k/uL Monocytes # 0.5 (0-1.0) k/uL Eosinophils # 0.3 (0-0.7) k/uL Basophils # 0.1 (0-0.2) k/uL PT (9.0-12.0) sec INR (<1.2) APTT (22.0-30.0) sec Sodium 133 L (137-145) mmol/L Potassium 3.9 (3.5-5.1) mmol/L Chloride 100 (98-107) mmol/L Carbon Dioxide 26 (22-30) mmol/L Anion Gap 7 mmol/L BUN 17 (7-17) mg/dL Creatinine 0.70 (0.52-1.04) mg/dL Est GFR (MDRD) Af Amer >60 (>60 ml/min/1.73 sqM) Est GFR (MDRD) Non-Af >60 (>60 ml/min/1.73 sqM) Glucose 97 (74-99) mg/dL Calcium 9.1 (8.4-10.2) mg/dL Total Bilirubin 0.3 (0.2-1.3) mg/dL AST 17 (14-36) U/L ALT 24 (9-52) U/L Alkaline Phosphatase 74 (38-126) U/L Total Creatine Kinase 55 (30-135) U/L CK-MB (CK-2) 0.9 (0.0-2.4) ng/mL CK-MB (CK-2) Rel Index 1.6 Troponin I <0.012 (0.000-0.034) ng/mL Total Protein 5.9 L (6.3-8.2) g/dL Albumin 3.7 (3.5-5.0) g/dL 09/29/17 Range/Units 19:47 WBC (3.8-10.6) k/uL RBC (3.80-5.40) m/uL Hgb (11.4-16.0) gm/dL Hct (34.0-46.0) % MCV (80.0-100.0) fL MCH (25.0-35.0) pg MCHC (31.0-37.0) g/dL RDW (11.5-15.5) % Plt Count (150-450) k/uL Neutrophils % % Lymphocytes % % Monocytes % % Eosinophils % % Basophils % % Neutrophils # (1.3-7.7) k/uL Lymphocytes # (1.0-4.8) k/uL Monocytes # (0-1.0) k/uL Eosinophils # (0-0.7) k/uL Basophils # (0-0.2) k/uL PT 10.5 (9.0-12.0) sec INR 1.1 (<1.2) APTT 24.6 (22.0-30.0) sec Sodium (137-145) mmol/L Potassium (3.5-5.1) mmol/L Chloride (98-107) mmol/L Carbon Dioxide (22-30) mmol/L Anion Gap mmol/L BUN (7-17) mg/dL Creatinine (0.52-1.04) mg/dL Est GFR (MDRD) Af Amer (>60 ml/min/1.73 sqM) Est GFR (MDRD) Non-Af (>60 ml/min/1.73 sqM) Glucose (74-99) mg/dL Calcium (8.4-10.2) mg/dL Total Bilirubin (0.2-1.3) mg/dL AST (14-36) U/L ALT (9-52) U/L Alkaline Phosphatase (38-126) U/L Total Creatine Kinase (30-135) U/L CK-MB (CK-2) (0.0-2.4) ng/mL CK-MB (CK-2) Rel Index Troponin I (0.000-0.034) ng/mL Total Protein (6.3-8.2) g/dL Albumin (3.5-5.0) g/dL - Radiology Data Radiology results: image reviewed (Chest x-ray shows no acute process) Disposition Clinical Impression: Hypertension Disposition: HOME SELF-CARE Condition: Stable Instructions: Hypertension (ED) Additional Instructions: Please follow-up with Dr. Bojorquez in the beginning of the week. Hold lisinopril and replace it with hydrochlorothiazide for the next couple of days until follow -up. You're being given a low dose of hydrochlorothiazide and if you do find that blood pressure remains high you may take 1 additional dose of hydrochlorothiazide daily. Prescriptions: Hydrochlorothiazide 12.5 mg PO DAILY #6 capsule Referrals: Manjeet Bojorquez MD [Primary Care Provider] - 1-2 days Time of Disposition: 20:44
[2017-09-29 19:34] VITALS: RESP 18
[2017-09-29] MEDS ORDERED: HYDROCHLOROTHIAZIDE 25 MG TAB PO ONE (19:49)
[2017-09-29 19:59] LABS: Basophils # (A) 0.1 k/uL (0-0.2); Basophils % (A) 1 %; Eosinophils # (A) 0.3 k/uL (0-0.7); Eosinophils % (A) 4 %; HCT 37.7 % (34.0-46.0); HGB 12.2 gm/dL (11.4-16.0); Lymphocytes # (A) 1.8 k/uL (1.0-4.8); Lymphocytes % (A) 29 %; MCH 29.3 pg (25.0-35.0); MCHC 32.5 g/dL (31.0-37.0); MCV 90.2 fL (80.0-100.0); Mean Platelet Volume 7.8; Monocytes # (A) 0.5 k/uL (0-1.0); Monocytes % (A) 8 %; Neutrophils # (A) 3.5 k/uL (1.3-7.7); Neutrophils % (A) 56 %; Platelet Count 198 k/uL (150-450); RBC 4.17 m/uL (3.80-5.40); RDW 14.3 % (11.5-15.5); WBC 6.3 k/uL (3.8-10.6)
[2017-09-29 20:09] LABS: INR 1.1 (<1.2); Partial Thromboplastin Time 24.6 sec (22.0-30.0); Prothrombin Time 10.5 sec (9.0-12.0)
[2017-09-29 20:10] LABS: ALT 24 U/L (9-52); AST 17 U/L (14-36); Albumin 3.7 g/dL (3.5-5.0); Alkaline Phosphatase 74 U/L (38-126); Anion Gap 7 mmol/L; Blood Urea Nitrogen 17 mg/dL (7-17); Calcium 9.1 mg/dL (8.4-10.2); Carbon Dioxide 26 mmol/L (22-30); Chloride 100 mmol/L (98-107); Glucose 97 mg/dL (74-99); Potassium 3.9 mmol/L (3.5-5.1); Sodium 133 mmol/L (137-145); Total Bilirubin 0.3 mg/dL (0.2-1.3); Total Protein 5.9 g/dL (6.3-8.2)
--- NOTE | 2017-09-29 20:14 | XR ---
EXAMINATION TYPE: XR chest 2V DATE OF EXAM: 09/29/2017 COMPARISON: June 25 2017 HISTORY: Weakness TECHNIQUE: Frontal and lateral views of the chest are obtained. FINDINGS: There is no focal air space opacity, pleural effusion, or pneumothorax seen. The cardiac silhouette size is within normal limits. The osseous structures are intact. IMPRESSION: No acute cardiopulmonary process.
[2017-09-29 20:20] LABS: Creatine Kinase 55 U/L (30-135)
[2017-09-29 20:33] LABS: Creatine Kinase MB 0.9 ng/mL (0.0-2.4); Troponin I <0.012 ng/mL (0.000-0.034)
[2017-09-29 21:23] VITALS: BP 174/74; PULSE 70; TEMP 97.7
== END 2017-09-29 21:23 | disposition home or self-care (01) ==
LOC: EC 19:03
DX: I10 Essential (primary) hypertension (principal); M19.90 Unspecified osteoarthritis, unspecified site; Z88.0 Allergy status to penicillin; Z88.2 Allergy status to sulfonamides; Z88.5 Allergy status to narcotic agent; Z91.048 Other nonmedicinal substance allergy status; Z79.82 Long term (current) use of aspirin; Z79.899 Other long term (current) drug therapy
CPT/HCPCS: 36415; 71046; 80053; 82550; 82553; 84484; 85025; 85610; 85730; 93005; 99284

== ENCOUNTER → 2018-05-30 | Outpatient (CLI) | payer MEDICARE, BC ==
--- NOTE | 2018-05-30 12:14 | MM ---
Reason for exam: screening (asymptomatic). Last mammogram was performed 1 year and 1 month ago. History: Patient is postmenopausal. Family history of breast cancer in maternal grandmother at age 40. Physical Findings: A clinical breast exam by your physician is recommended on an annual basis and results should be correlated with mammographic findings. MG Screening Mammo w CAD Bilateral CC and MLO view(s) were taken. Prior study comparison: May 14, 2017, bilateral MG screening mammo w CAD. September 06, 2015, bilateral MG screening mammo w CAD. The breast tissue is heterogeneously dense. This may lower the sensitivity of mammography. Finding: There are typically benign vascular, round calcifications in both breasts. There is no discrete abnormality. ASSESSMENT: Benign, BI-RAD 2 RECOMMENDATION: Routine screening mammogram of both breasts in 1 year.
== END | disposition home or self-care (01) ==
LOC: RADMAMWWP 10:23
PROVIDERS: ATTEND Family Medicine
DX: Z12.31 Encounter for screening mammogram for malignant neoplasm of breast (principal)
CPT/HCPCS: 77067

== ENCOUNTER 2018-07-08 11:46 | Inpatient (IN) | payer MEDICARE, BC ==
[2018-07-08] MEDS ORDERED: SODIUM CHLORIDE 0.9% 500 ML 500 ML IV STA (12:46)
--- NOTE | 2018-07-08 12:46 | ED ---
General Adult HPI <MartínezTriston - Last Filed: 07/08/18 17:09> - General Source: patient, RN notes reviewed Mode of arrival: wheelchair Limitations: no limitations <Joey Pereira - Last Filed: 07/08/18 19:30> - General Chief complaint: Syncope Stated complaint: Fall Time Seen by Provider: 07/08/18 12:35 - History of Present Illness Initial comments: 77-year-old female presents to the emergency department for a chief complaint of near syncopal episode occurring about one hour prior to arrival. Patient states she was vacuuming when her vision went black. Patient states she tried to make it to the couch but fell onto the bilateral knees and grabbed a table. Patient states she did not completely lose consciousness. She states she was then able to stand up and call for help. Her vision did return back to normal quickly. Patient states she does have a problem with a heart valves but she is unsure what exactly. Patient states this happened before about a year ago when she was taking too many pain pills for her knee replacement. Otherwise this has never occurred for her. She states she is on azithromycin for sinus congestion and believes it was due to the azithromycin. She took her last pill today. She denies any chest pain or shortness of breath. She states she is otherwise feeling well, afebrile. Patient has no other complaints at this time including shortness of breath, chest pain, abdominal pain, nausea or vomiting, headache. (Joey Pereira) - Related Data Home Medications Medication Instructions Recorded Confirmed Aspirin 81 mg PO HS 10/28/14 07/08/18 Carvedilol [Coreg] 3.125 mg PO BID 07/08/18 07/08/18 Allergies Allergy/AdvReac Type Severity Reaction Status Date / Time Iodine and Iodide Containing Allergy Unknown Verified 07/08/18 13:00 Produc Penicillins Allergy Rash/Hives Verified 07/08/18 13:00 Sulfa (Sulfonamide Allergy Rash/Hives Verified 07/08/18 13:00 Antibiotics) codeine AdvReac Nausea & Verified 07/08/18 13:00 Vomiting hydralazine AdvReac Unknown Verified 07/08/18 16:47 Pain meds AdvReac Unknown Uncoded 07/08/18 12:00 Review of Systems ROS Other: All systems not noted in ROS Statement are negative. <MartínezTriston - Last Filed: 07/08/18 17:09> ROS Other: All systems not noted in ROS Statement are negative. <Joey Pereira - Last Filed: 07/08/18 19:30> ROS Statement: Those systems with pertinent positive or pertinent negative responses have been documented in the HPI. Past Medical History Past Medical History: Hypertension Additional Past Medical History / Comment(s): heart murmer,arthritis, concussion History of Any Multi-Drug Resistant Organisms: None Reported Past Surgical History: Back Surgery, Hysterectomy, Joint Replacement, Tonsillectomy Additional Past Surgical History / Comment(s): disectomy, cataracts Additional Past Anesthesia/Blood Transfusion Reaction / Comment(s): wakes up very slow, "does not take a lot" Past Psychological History: No Psychological Hx Reported Smoking Status: Never smoker Past Alcohol Use History: Occasional Past Drug Use History: None Reported - Past Family History Brother(s) Family Medical History: Cancer <Joey Pereira P - Last Filed: 07/08/18 19:30> General Exam Limitations: no limitations General appearance: alert, in no apparent distress Head exam: Present: atraumatic, normocephalic, normal inspection Eye exam: Present: normal appearance, PERRL, EOMI. Absent: scleral icterus, conjunctival injection, periorbital swelling ENT exam: Present: normal exam, mucous membranes moist Neck exam: Present: normal inspection, full ROM. Absent: tenderness, meningismus, lymphadenopathy Respiratory exam: Present: normal lung sounds bilaterally. Absent: respiratory distress, wheezes, rales, rhonchi, stridor Cardiovascular Exam: Present: regular rate, normal rhythm, normal heart sounds. Absent: systolic murmur, diastolic murmur, rubs, gallop, clicks GI/Abdominal exam: Present: soft, normal bowel sounds. Absent: distended, tenderness, guarding, rebound, rigid Neurological exam: Present: alert, oriented X3, CN II-XII intact Psychiatric exam: Present: normal affect, normal mood <Joey Pereira P - Last Filed: 07/08/18 19:30> Vital Signs 07/08/18 07/08/18 07/08/18 11:55 14:34 15:00 Temperature 97.9 F Pulse Rate 67 70 61 Respiratory 16 18 Rate Blood Pressure 193/77 224/69 224/69 Blood Pressure [Right Arm Sitting] Blood Pressure [Right Arm Standing] Blood Pressure [Right Arm Supine] O2 Sat by Pulse 96 100 99 Oximetry 07/08/18 07/08/18 07/08/18 15:30 16:00 16:11 Temperature Pulse Rate 64 60 Respiratory Rate Blood Pressure 224/69 224/69 Blood Pressure 199/69 [Right Arm Sitting] Blood Pressure 213/69 [Right Arm Standing] Blood Pressure 193/56 [Right Arm Supine] O2 Sat by Pulse Oximetry 07/08/18 07/08/18 07/08/18 16:12 16:30 17:00 Temperature Pulse Rate 74 95 75 Respiratory 18 Rate Blood Pressure 213/69 181/63 164/87 Blood Pressure [Right Arm Sitting] Blood Pressure [Right Arm Standing] Blood Pressure [Right Arm Supine] O2 Sat by Pulse 98 99 98 Oximetry 07/08/18 07/08/18 07/08/18 17:30 18:00 18:06 Temperature 97.5 F L Pulse Rate 85 80 78 Respiratory 18 Rate Blood Pressure 141/53 153/51 163/49 Blood Pressure [Right Arm Sitting] Blood Pressure [Right Arm Standing] Blood Pressure [Right Arm Supine] O2 Sat by Pulse 99 98 98 Oximetry EKG Findings - EKG Comments: EKG Findings:: Sinus rhythm, ventricular rate 59, QRS duration 86, QTC 425, no evidence of ST elevation or depression <Joey Pereira - Last Filed: 07/08/18 19:30> Medical Decision Making - Lab Data Result diagrams: 07/08/18 13:18 07/08/18 13:18 <Triston Martínez - Last Filed: 07/08/18 17:09> - Lab Data Result diagrams: 07/08/18 13:18 07/08/18 13:18 <Joey Pereira - Last Filed: 07/08/18 19:30> - Medical Decision Making I, Jonatan Martínez, personally saw and examined the patient. I have reviewed and agree with the PA findings, including all diagnostic interpretations and treatment plans as written unless otherwise stated. I was present for the brown portions of any procedures performed and the inclusive time noted for any critical care statement. (Triston Martínez) 77-year-old female presents to the emergency determine for chief complaint of near syncope occurring about one hour prior to arrival. Patient states she was vacuuming when her vision blackened and she fell onto the bilateral knees but did not completely lose consciousness. She states she was unable to stand up. On exam no focal neuro deficits. Patient is well appearing, sitting up in bed. No ST elevation. CBC and CMP are unremarkable. Troponin less than 0.012. Cardiac profile negative. Chest x-ray shows no evidence for acute cardiopulmonary disease. Urine is negative for infection. Patient's blood pressure was 224/69. Patient was given hydralazine and blood pressure normalized. However this medication caused her to have an ALLERGIC reaction including erythema of the face and tremors. Patient had a syncopal episode here in the emergency department after this administration. I did recommend admission to the hospital for further evaluation and patient does agree with this. (Joey Pereira) - Lab Data Lab Results 07/08/18 07/08/18 07/08/18 Range/Units 13:18 13:18 13:18 WBC 8.9 (3.8-10.6) k/uL RBC 4.73 (3.80-5.40) m/uL Hgb 14.1 (11.4-16.0) gm/dL Hct 41.6 (34.0-46.0) % MCV 88.0 (80.0-100.0) fL MCH 29.8 (25.0-35.0) pg MCHC 33.9 (31.0-37.0) g/dL RDW 14.0 (11.5-15.5) % Plt Count 206 (150-450) k/uL Neutrophils % 72 % Lymphocytes % 21 % Monocytes % 4 % Eosinophils % 1 % Basophils % 1 % Neutrophils # 6.4 (1.3-7.7) k/uL Lymphocytes # 1.9 (1.0-4.8) k/uL Monocytes # 0.4 (0-1.0) k/uL Eosinophils # 0.1 (0-0.7) k/uL Basophils # 0.1 (0-0.2) k/uL PT (9.0-12.0) sec INR (<1.2) APTT (22.0-30.0) sec Sodium 138 (137-145) mmol/L Potassium 3.9 (3.5-5.1) mmol/L Chloride 103 (98-107) mmol/L Carbon Dioxide 26 (22-30) mmol/L Anion Gap 9 mmol/L BUN 15 (7-17) mg/dL Creatinine 0.59 (0.52-1.04) mg/dL Est GFR (CKD-EPI)AfAm >90 (>60 ml/min/1.73 sqM) Est GFR (CKD-EPI)NonAf 89 (>60 ml/min/1.73 sqM) Glucose 95 (74-99) mg/dL Calcium 9.6 (8.4-10.2) mg/dL Magnesium 2.2 (1.6-2.3) mg/dL Total Bilirubin 0.4 (0.2-1.3) mg/dL AST 21 (14-36) U/L ALT 27 (9-52) U/L Alkaline Phosphatase 77 (38-126) U/L Total Creatine Kinase 65 (30-135) U/L CK-MB (CK-2) 1.1 (0.0-2.4) ng/mL CK-MB (CK-2) Rel Index 1.7 Troponin I 0.013 (0.000-0.034) ng/mL Total Protein 6.8 (6.3-8.2) g/dL Albumin 3.9 (3.5-5.0) g/dL Urine Color Urine Appearance (Clear) Urine pH (5.0-8.0) Ur Specific [place] (1.001-1.035) Urine Protein (Negative) Urine Glucose (UA) (Negative) Urine Ketones (Negative) Urine Blood (Negative) Urine Nitrite (Negative) Urine Bilirubin (Negative) Urine Urobilinogen (<2.0) mg/dL Ur Leukocyte Esterase (Negative) 07/08/18 07/08/18 Range/Units 13:18 14:59 WBC (3.8-10.6) k/uL RBC (3.80-5.40) m/uL Hgb (11.4-16.0) gm/dL Hct (34.0-46.0) % MCV (80.0-100.0) fL MCH (25.0-35.0) pg MCHC (31.0-37.0) g/dL RDW (11.5-15.5) % Plt Count (150-450) k/uL Neutrophils % % Lymphocytes % % Monocytes % % Eosinophils % % Basophils % % Neutrophils # (1.3-7.7) k/uL Lymphocytes # (1.0-4.8) k/uL Monocytes # (0-1.0) k/uL Eosinophils # (0-0.7) k/uL Basophils # (0-0.2) k/uL PT 10.1 (9.0-12.0) sec INR 1.0 (<1.2) APTT 24.0 (22.0-30.0) sec Sodium (137-145) mmol/L Potassium (3.5-5.1) mmol/L Chloride (98-107) mmol/L Carbon Dioxide (22-30) mmol/L Anion Gap mmol/L BUN (7-17) mg/dL Creatinine (0.52-1.04) mg/dL Est GFR (CKD-EPI)AfAm (>60 ml/min/1.73 sqM) Est GFR (CKD-EPI)NonAf (>60 ml/min/1.73 sqM) Glucose (74-99) mg/dL Calcium (8.4-10.2) mg/dL Magnesium (1.6-2.3) mg/dL Total Bilirubin (0.2-1.3) mg/dL AST (14-36) U/L ALT (9-52) U/L Alkaline Phosphatase (38-126) U/L Total Creatine Kinase (30-135) U/L CK-MB (CK-2) (0.0-2.4) ng/mL CK-MB (CK-2) Rel Index Troponin I (0.000-0.034) ng/mL Total Protein (6.3-8.2) g/dL Albumin (3.5-5.0) g/dL Urine Color Colorless Urine Appearance Clear (Clear) Urine pH 7.5 (5.0-8.0) Ur Specific [place] 1.002 (1.001-1.035) Urine Protein Negative (Negative) Urine Glucose (UA) Negative (Negative) Urine Ketones Negative (Negative) Urine Blood Negative (Negative) Urine Nitrite Negative (Negative) Urine Bilirubin Negative (Negative) Urine Urobilinogen <2.0 (<2.0) mg/dL Ur Leukocyte Esterase Negative (Negative) Disposition <Triston Martínez - Last Filed: 07/08/18 17:09> Is patient prescribed a controlled substance at d/c from ED?: No Time of Disposition: 18:07 <Joey Pereira - Last Filed: 07/08/18 19:30> Clinical Impression: Near syncope, Hypertension Disposition: ADMITTED IP TO THIS HOSP Condition: Good
--- NOTE | 2018-07-08 13:10 | XR ---
EXAMINATION TYPE: XR chest 2V DATE OF EXAM: 07/08/2018 COMPARISON: 09/29/2017 HISTORY: Shortness of breath TECHNIQUE: Frontal and lateral views of the chest are obtained. FINDINGS: Scattered senescent parenchymal changes noted. Hyperinflation compatible with COPD. No evidence for infiltrate. No evidence for atelectasis. Heart size is stable. Mediastinal structures are stable and grossly unremarkable. No evidence for hilar prominence. Degenerative changes dorsal spine. IMPRESSION: 1. No evidence for acute pulmonary disease.
[2018-07-08 13:34] LABS: Basophils # (A) 0.1 k/uL (0-0.2); Basophils % (A) 1 %; Eosinophils # (A) 0.1 k/uL (0-0.7); Eosinophils % (A) 1 %; HCT 41.6 % (34.0-46.0); HGB 14.1 gm/dL (11.4-16.0); Lymphocytes # (A) 1.9 k/uL (1.0-4.8); Lymphocytes % (A) 21 %; MCH 29.8 pg (25.0-35.0); MCHC 33.9 g/dL (31.0-37.0); Mean Platelet Volume 8.1; Monocytes # (A) 0.4 k/uL (0-1.0); Monocytes % (A) 4 %; Neutrophils # (A) 6.4 k/uL (1.3-7.7); Neutrophils % (A) 72 %; Platelet Count 206 k/uL (150-450); RBC 4.73 m/uL (3.80-5.40); WBC 8.9 k/uL (3.8-10.6)
[2018-07-08 13:44] LABS: ALT 27 U/L (9-52); AST 21 U/L (14-36); Albumin 3.9 g/dL (3.5-5.0); Alkaline Phosphatase 77 U/L (38-126); Anion Gap 9 mmol/L; Blood Urea Nitrogen 15 mg/dL (7-17); Calcium 9.6 mg/dL (8.4-10.2); Carbon Dioxide 26 mmol/L (22-30); Chloride 103 mmol/L (98-107); Glucose 95 mg/dL (74-99); Magnesium 2.2 mg/dL (1.6-2.3); Potassium 3.9 mmol/L (3.5-5.1); Prothrombin Time 10.1 sec (9.0-12.0); Sodium 138 mmol/L (137-145); Total Bilirubin 0.4 mg/dL (0.2-1.3); Total Protein 6.8 g/dL (6.3-8.2)
[2018-07-08 14:05] LABS: Creatine Kinase MB 1.1 ng/mL (0.0-2.4); Troponin I 0.013 ng/mL (0.000-0.034)
[2018-07-08 15:13] LABS: Appearance,Urine Clear (Clear); Bilirubin,Urine Negative (Negative); Blood,Urine Negative (Negative); Color,Urine Colorless; Glucose,Urine (UA) Negative (Negative); Ketones,Urine Negative (Negative); Leukocyte Esterase,Urine Negative (Negative); Nitrite,Urine Negative (Negative); PH, Urine 7.5 (5.0-8.0); Protein,Urine Negative (Negative); Specific Gravity,Urine 1.002 (1.001-1.035); Urobilinogen,Urine <2.0 mg/dL (<2.0)
[2018-07-08] MEDS ORDERED: CARVEDILOL 3.125 MG TAB PO STA (15:19)
[2018-07-08] MEDS ORDERED: hydrALAZINE HCL 20 MG/ML 1 ML VIAL IVP STA (15:40)
[2018-07-08] MEDS ORDERED: ACETAMINOPHEN TAB 500 MG TAB PO STA (16:25)
[2018-07-08] MEDS ORDERED: diphenhydrAMINE 50 MG CAP PO STA (16:27)
[2018-07-08] MEDS ORDERED: methylPREDNISolone SOD SUCCI 125 MG/2 ML VIAL IV STA (16:28)
[2018-07-08] MEDS ORDERED: FAMOTIDINE 20 MG/2 ML VIAL IV ONE (16:45)
[2018-07-08] MEDS ORDERED: NALOXONE 0.4 MG/ML 1 ML VIAL IV PRN (17:53)
[2018-07-08] MEDS: SODIUM CHLORIDE 0.9% 1,000 ML IV SCH (18:41)
[2018-07-09 01:18] VITALS: BMI 20.2
[2018-07-09] MEDS: ASPIRIN 81 MG PO SCH ×2 (01:20→21:03)
[2018-07-09] MEDS ORDERED: CARVEDILOL 3.125 MG TAB PO SCH (07:30)
[2018-07-09] MEDS ORDERED: FAMOTIDINE 20 MG/2 ML VIAL IV SCH (09:00)
[2018-07-09] MEDS ORDERED: CARVEDILOL 3.125 MG TAB PO STA (10:25)
[2018-07-09 11:58] LABS: Basophils % (A) 1 %; Eosinophils # (A) 0.1 k/uL (0-0.7); Eosinophils % (A) 2 %; HGB 13.4 gm/dL (11.4-16.0); Lymphocytes # (A) 1.5 k/uL (1.0-4.8); Lymphocytes % (A) 19 %; MCH 30.2 pg (25.0-35.0); MCHC 33.5 g/dL (31.0-37.0); MCV 90.1 fL (80.0-100.0); Mean Platelet Volume 8.4; Monocytes # (A) 0.5 k/uL (0-1.0); Monocytes % (A) 6 %; Neutrophils # (A) 5.7 k/uL (1.3-7.7); Neutrophils % (A) 72 %; Platelet Count 191 k/uL (150-450); RBC 4.44 m/uL (3.80-5.40); RDW 14.3 % (11.5-15.5)
[2018-07-09 12:15] LABS: Albumin 3.7 g/dL (3.5-5.0); Potassium 4.2 mmol/L (3.5-5.1); Total Bilirubin 0.5 mg/dL (0.2-1.3); Total Protein 6.3 g/dL (6.3-8.2)
--- NOTE | 2018-07-09 13:46 | P.HPIM ---
History of Present Illness H&P Date: 07/09/18 Chief Complaint: Syncope This is a 77-year-old female, patient of Dr. Crain she has a known past medical history of hypertension and heart murmur. Patient presents to the emergency room initially complaining of a near syncopal episode. It occurred about one hour prior to her arrival. She was vacuuming when her vision surgical black. She described it as a curtain going down both of her eyes. She tried to make it to the couch incontinent and went down on her knees. At that time she is unsure if she fully lost consciousness or not. Her vision did return quickly she was able to get to the phone and call for help. Patient is having difficulty relating the full story. She says she feels that she is her mind is fuzzy and cannot recall the details. She reports that she had been cutting her Coreg medication in half. In that morning she did not cut it in half. She also completed an antibiotic azithromycin for sinus infection that morning. Patient also is having very elevated blood pressure as high as 224/ 69. In the ER she was given IV hydralazine and blood pressure normalized. However the medication cost her have an ALLERGIC reaction including which had included erythema of the face and tremors. Then patient had a syncopal episode in the emergency department after administering the hydralazine. Patient does not recall this event. Patient denies any chest pain or shortness of breath, nausea or vomiting, fever chills or sweats, bowel movement changes or urinary symptoms. Cardiology has been consulted port. They've ordered a 2-D echo and carotid ultrasound has been ordered as well. For the ALLERGIC reaction to the hydralazine IV Solu-Medrol and Pepcid was administered. Rash has resolved. Patient is alert and orientated to 3. She does live alone. She denies any weakness or headaches. Review of Systems Please refer to HPI otherwise unremarkable Past Medical History Past Medical History: Hypertension Additional Past Medical History / Comment(s): heart murmer,arthritis, concussion History of Any Multi-Drug Resistant Organisms: None Reported Past Surgical History: Back Surgery, Hysterectomy, Joint Replacement, Tonsillectomy Additional Past Surgical History / Comment(s): disectomy, cataracts Additional Past Anesthesia/Blood Transfusion Reaction / Comment(s): wakes up very slow, "does not take a lot" Past Psychological History: No Psychological Hx Reported Smoking Status: Never smoker Past Alcohol Use History: Occasional Past Drug Use History: None Reported - Past Family History Brother(s) Family Medical History: Cancer Medications and Allergies Home Medications Medication Instructions Recorded Confirmed Type Aspirin 81 mg PO HS 10/28/14 07/08/18 History Carvedilol [Coreg] 3.125 mg PO BID 07/08/18 07/08/18 History Allergies Allergy/AdvReac Type Severity Reaction Status Date / Time Iodine and Iodide Containing Allergy Unknown Verified 07/08/18 13:00 Produc Penicillins Allergy Rash/Hives Verified 07/08/18 13:00 Sulfa (Sulfonamide Allergy Rash/Hives Verified 07/08/18 13:00 Antibiotics) codeine AdvReac Nausea & Verified 07/08/18 13:00 Vomiting hydralazine AdvReac Unknown Verified 07/08/18 16:47 Pain meds AdvReac Unknown Uncoded 07/08/18 12:00 Physical Exam Vitals: Vital Signs Temp Pulse Pulse Resp BP BP BP 07/09/18 08:14 72 16 180/87 07/09/18 01:00 98.1 F 71 14 161/61 07/08/18 20:30 98.2 F 73 12 175/59 07/08/18 19:59 97.8 F 72 17 164/55 07/08/18 19:30 70 18 162/55 07/08/18 19:00 70 128/61 07/08/18 18:30 151/51 07/08/18 18:06 97.5 F L 78 18 163/49 07/08/18 18:00 80 153/51 07/08/18 17:30 85 141/53 07/08/18 17:00 75 164/87 07/08/18 16:30 95 181/63 07/08/18 16:12 74 18 213/69 07/08/18 16:11 199/69 213/69 07/08/18 16:00 60 224/69 07/08/18 15:30 64 224/69 07/08/18 15:00 61 224/69 07/08/18 14:34 70 18 224/69 BP Pulse Ox 07/09/18 08:14 99 07/09/18 01:00 98 07/08/18 20:30 98 07/08/18 19:59 98 07/08/18 19:30 98 07/08/18 19:00 07/08/18 18:30 98 07/08/18 18:06 98 07/08/18 18:00 98 07/08/18 17:30 99 07/08/18 17:00 98 07/08/18 16:30 99 07/08/18 16:12 98 07/08/18 16:11 193/56 07/08/18 16:00 07/08/18 15:30 07/08/18 15:00 99 07/08/18 14:34 100 Intake and Output 07/08/18 07/09/18 07/09/18 22:59 06:59 14:59 Intake Total 600 Balance 600 Intake: Oral 600 Other: # Voids 1 Weight 51.71 kg Head normocephalic Neck supple Lungs clear to auscultation bilaterally no wheezing or crackles Heart regular rate and rhythm S1-S2, no rub or gallop Abdomen is soft nontender nondistended positive bowel sounds no hepatosplenomegaly Extremities no edema Neuro alert and orientated to 3 Results CBC & Chem 7: 07/09/18 11:14 07/09/18 11:14 Labs: Abnormal Lab Results - Last 24 Hours (Table) 07/09/18 Range/Units 11:14 Glucose 113 H (74-99) mg/dL Thrombosis Risk Factor Assmnt - Choose All That Apply Any of the Below Risk Factors Present?: No Other Risk Factors: No Each Risk Factor Represents 3 Points: Age 75 years or older Other congenital or acquired thrombophilia - If yes, enter type in comment: No Thrombosis Risk Factor Assessment Total Risk Factor Score: 3 Thrombosis Risk Factor Assessment Level: Very Low Risk Assessment and Plan Assessment: 1. Syncopal episode: Workup in progress. Continue telemetry monitoring. Check echo and carotid ultrasound. Check orthostatic blood pressure. Cardiology on consult. Urinalysis is negative. EKG sinus rhythm. Troponin negative. D-dimer normal at 0.53 2. Hypertensive emergency with a blood pressure of 224/69 was given hydralazine. Blood pressures are still elevated this morning cardiology did restart the Coreg. Continue to monitor blood pressure. 3. ALLERGIC reaction to hydralazine causing rash and syncopal episode. Patient given IV Solu-Medrol and IV Pepcid. 4. History of essential hypertension 5. History of heart murmur. Follow-up 2-D echo GI prophylaxis Pepcid and DVT prophylaxis SCDs Time with Patient: Greater than 30 (Greater than 60% of the total time spent in counseling and coordination of care.I performed an examination of the patient and discussed their management with the physician Center Mgr. I have reviewed the Physician Center Mgr's notes and agree with the documented findings and plan of care)
--- NOTE | 2018-07-09 13:52 | P.CRDCN ---
History of Present Illness History of present illness: This is a pleasant 77-year-old female past medical history significant for hypertension and heart murmur. She denies history of coronary artery disease, dyslipidemia or diabetes mellitus. She used to follow with cardiology for her murmur but in the recent years has followed with her PCP only. She lives in [place] and recently changed primary physicians from Dr. Bojorquez to Dr. Crain for convenience to her home. She saw Dr. Crain in the office and was told she could discontinue her hydrochlorothiazide and decrease her coreg to 3.125 mg BID. Her first time doing this was Sunday. She took 3.125 mg BID on Sunday. She woke up Sunday morning feeling normal at first. She started walking through her house to let her dog out and she started feeling very foggy and light headed. She states it felt like everything around her was getting black. She felt as though she was going to pass out so she lowered herself to the floor and laid down. She continued to feel this way for awhile. She was able to crawl to her couch and phone her niece for help. From that time on she doesn't quite recall exactly the course of events leading to her coming to the hospital. Upon arrival her blood pressure was 224/69. She was given IV hydralazine in ED and apparently had a reaction. She is unclear on these events as well. At the time my exam she is seen up walking around the unit no acute distress. She denies symptoms of chest pain, dizziness, palpitations or shortness of breath. She seems mildly forgetful at the time of my exam, she states she usually has a pretty sharp memory. EKG reveals sinus mechanism with no acute ST or T wave abnormalities noted. Chest x-ray is negative for acute cardiopulmonary process. Laboratory data reviewed, hemoglobin 13.4, WBC 8, platelets 1, d-dimer 0.53, sodium 140, potassium 4.2, creatinine 0.75, magnesium 2.2, cardiac enzymes negative x1. Current cardiac medications include Coreg 3.125 mg twice a day. Most recent echocardiogram obtained June 2017 reveals preserved left ventricular systolic function with ejection fraction 55-60%, mildly dilated left atrium, moderate aortic regurgitation, mild MR and moderate TR noted. At the time of my exam: CONSTITUTIONAL: Denies fever. Denies chills. EYES: Denies blurred vision. Denies vision changes. Denies eye pain. EARS, NOSE, MOUTH & THROAT: Denies headache. Denies sore throat. Denies ear pain. CARDIOVASCULAR: Denies chest pain. Denies shortness of breath. Denies orthopnea. Denies PND. Denies palpitations. RESPIRATORY: Denies cough. GASTROINTESTINAL: Denies abdominal pain. Denies diarrhea. Denies constipation. Denies nausea. Denies vomiting. MUSCULOSKELETAL: Denies myalgias. INTEGUMENTARY: Denies pruitis. Denies rash. NEUROLOGIC: Denies numbness. Denies tingling. Denies weakness. PSYCHIATRIC: Denies anxiety. Denies depression. ENDOCRINE: Denies fatigue. Denies weight change. Denies polydipsia. Denies polyurina. GENITOURINARY: Denies burning, hematuria or urgency with micturation. HEMATOLOGIC: Denies history of anemia. Denies bleeding. Blood pressure 180/87 heart rate 72 afebrile maintaining oxygen saturation on room air GENERAL: This is a 77-year-old female in no apparent distress at the time of my examination. HEENT: Head is atraumatic, normocephalic. Pupils are equal, round. Sclerae anicteric. Conjunctivae are clear. Mucous membranes of the mouth are moist. Neck is supple. There is no jugular venous distention. No carotid bruit is heard. LUNGS: Clear to auscultation no wheezes, rales or rhonchi. No chest wall tenderness is noted on palpation or with deep breathing. HEART: Regular rate and rhythm with murmur noted at the base, no rubs or gallops. S1 and S2 heard. ABDOMEN: Soft, nontender. Bowel sounds are heard. No organomegaly noted. EXTREMITIES: No evidence of peripheral edema and no calf tenderness noted. VASCULAR: Radial and dorsalis pedis pulses palpated, no evidence of clubbing. NEUROLOGIC: Patient is awake, alert and oriented x3. Confused about situation. ASSESSMENT Hypertensive emergency Dizziness with episode of confusion Valvular heart disease PLAN Obtain 2D echocardiogram and doppler study to assess cardiac structure and function. Increase carvedilol to 6.25 mg twice a day. Give additional dose of 3.125 mg now. Continue to increase activity and assess for an acute arrhythmia. Consider possibility of further neurologic evaluation. Thank you kindly for this consultation. Nurse Practitioner note has been reviewed, I agree with a documented findings and plan of care. Patient was seen and examined. Past Medical History Past Medical History: Hypertension Additional Past Medical History / Comment(s): heart murmer,arthritis, concussion History of Any Multi-Drug Resistant Organisms: None Reported Past Surgical History: Back Surgery, Hysterectomy, Joint Replacement, Tonsillectomy Additional Past Surgical History / Comment(s): disectomy, cataracts Additional Past Anesthesia/Blood Transfusion Reaction / Comment(s): wakes up very slow, "does not take a lot" Past Psychological History: No Psychological Hx Reported Smoking Status: Never smoker Past Alcohol Use History: Occasional Past Drug Use History: None Reported - Past Family History Brother(s) Family Medical History: Cancer Medications and Allergies Home Medications Medication Instructions Recorded Confirmed Type Aspirin 81 mg PO HS 10/28/14 07/08/18 History Carvedilol [Coreg] 3.125 mg PO BID 07/08/18 07/08/18 History Allergies Allergy/AdvReac Type Severity Reaction Status Date / Time Iodine and Iodide Containing Allergy Unknown Verified 07/08/18 13:00 Produc Penicillins Allergy Rash/Hives Verified 07/08/18 13:00 Sulfa (Sulfonamide Allergy Rash/Hives Verified 07/08/18 13:00 Antibiotics) codeine AdvReac Nausea & Verified 07/08/18 13:00 Vomiting hydralazine AdvReac Unknown Verified 07/08/18 16:47 Pain meds AdvReac Unknown Uncoded 07/08/18 12:00 Physical Exam Vitals: Vital Signs Temp Pulse Pulse Resp BP BP BP 07/09/18 08:14 72 16 180/87 07/09/18 01:00 98.1 F 71 14 161/61 07/08/18 20:30 98.2 F 73 12 175/59 07/08/18 19:59 97.8 F 72 17 164/55 07/08/18 19:30 70 18 162/55 07/08/18 19:00 70 128/61 07/08/18 18:30 151/51 18 18:06 97.5 F L 78 18 163/49 07/08/18 18:00 80 153/51 07/08/18 17:30 85 141/53 07/08/18 17:00 75 164/87 07/08/18 16:30 95 181/63 07/08/18 16:12 74 18 213/69 07/08/18 16:11 199/69 213/69 07/08/18 16:00 60 224/69 07/08/18 15:30 64 224/69 07/08/18 15:00 61 224/69 07/08/18 14:34 70 18 224/69 BP Pulse Ox 07/09/18 08:14 99 07/09/18 01:00 98 07/08/18 20:30 98 07/08/18 19:59 98 07/08/18 19:30 98 07/08/18 19:00 07/08/18 18:30 98 07/08/18 18:06 98 07/08/18 18:00 98 07/08/18 17:30 99 07/08/18 17:00 98 07/08/18 16:30 99 07/08/18 16:12 98 07/08/18 16:11 193/56 07/08/18 16:00 07/08/18 15:30 07/08/18 15:00 99 07/08/18 14:34 100 Intake and Output 07/08/18 07/09/18 07/09/18 22:59 06:59 14:59 Intake Total 600 Balance 600 Intake: Oral 600 Other: # Voids 1 Weight 51.71 kg Results 07/09/18 11:14 07/09/18 11:14 Cardiac Enzymes 07/08/18 07/08/18 07/09/18 Range/Units 13:18 13:18 11:14 AST 21 22 (14-36) U/L CK-MB (CK-2) 1.1 (0.0-2.4) ng/mL Troponin I 0.013 (0.000-0.034) ng/mL Coagulation 07/08/18 Range/Units 13:18 PT 10.1 (9.0-12.0) sec APTT 24.0 (22.0-30.0) sec CBC 07/08/18 07/09/18 Range/Units 13:18 11:14 WBC 8.9 8.0 (3.8-10.6) k/uL RBC 4.73 4.44 (3.80-5.40) m/uL Hgb 14.1 13.4 (11.4-16.0) gm/dL Hct 41.6 40.0 (34.0-46.0) % Plt Count 206 191 (150-450) k/uL Comprehensive Metabolic Panel 07/08/18 07/09/18 Range/Units 13:18 11:14 Sodium 138 140 (137-145) mmol/L Potassium 3.9 4.2 (3.5-5.1) mmol/L Chloride 103 107 (98-107) mmol/L Carbon Dioxide 26 25 (22-30) mmol/L BUN 15 17 (7-17) mg/dL Creatinine 0.59 0.75 (0.52-1.04) mg/dL Glucose 95 113 H (74-99) mg/dL Calcium 9.6 9.0 (8.4-10.2) mg/dL AST 21 22 (14-36) U/L ALT 27 26 (9-52) U/L Alkaline Phosphatase 77 67 (38-126) U/L Total Protein 6.8 6.3 (6.3-8.2) g/dL Albumin 3.9 3.7 (3.5-5.0) g/dL Current Medications Generic Name Dose Route Start Last Admin Trade Name Freq PRN Reason Stop Dose Admin Aspirin 81 mg 07/08/18 21:00 07/09/18 01:20 Aspirin PO 81 mg HS ARI Administration Carvedilol 6.25 mg 07/09/18 17:30 Coreg PO BID-W/MEALS ARI Famotidine 20 mg 07/09/18 09:00 07/09/18 08:10 Pepcid IV Not Given DAILY ARI Sodium Chloride 1,000 mls @ 75 mls/hr 07/08/18 18:00 07/08/18 18:41 Saline 0.9% IV 75 mls/hr .[id number] ARI Administration Naloxone HCl 0.2 mg 07/08/18 17:53 Narcan IV Q2M PRN Opioid Reversal Intake and Output 07/08/18 07/09/18 07/09/18 22:59 06:59 14:59 Intake Total 600 Balance 600 Intake: Oral 600 Other: # Voids 1 Weight 51.71 kg 07/09/18 11:14 07/09/18 11:14
--- NOTE | 2018-07-09 15:13 | US ---
EXAMINATION TYPE: US carotid duplex BILAT DATE OF EXAM: 07/09/2018 COMPARISON: NONE CLINICAL HISTORY: syncope. EXAM MEASUREMENTS: RIGHT: Peak Systolic Velocity (PSV) cm/sec ----- Right CCA: 93.5 ----- Right ICA: 98.8 ----- Right ECA: 147.5 ICA/CCA ratio: 1.1 RIGHT: End Diastole cm/sec ----- Right CCA: 6.3 ----- Right ICA: 13.3 ----- Right ECA: 0.0 LEFT: Peak Systolic Velocity (PSV) cm/sec ----- Left CCA: 113.2 ----- Left ICA: 89.6 ----- Left ECA: 101.7 ICA/CCA ratio: 0.8 LEFT: End Diastole cm/sec ----- Left CCA: 8.7 ----- Left ICA: 15.0 ----- Left ECA: 0.0 VERTEBRALS (direction of flow): Right Vertebral: Antegrade Left Vertebral: Antegrade Rhythm: Normal Moderate plaque, no significant velocity elevations. IMPRESSION: Moderate degree of grayscale atheromatous plaquing with no sonographically evident hemod ynamically significant stenosis within the internal carotid arteries or common carotid arteries as vi sualized. Criteria for Assigning % of Stenosis / Diameter reduction (Estimation based on the indirect measurements of the internal carotid artery velocities (ICA PSV). 1. Normal (no stenosis)=ICA PSV < 125 cm/s: ratio < 2.0: ICA EDV<40 cm/s. 2. Less than 50% stenosis=ICA PSV < 125 cm/s: ratio < 2.0: ICA EDV<40 cm/s. 3. 50 to 69% stenosis=ICA PSV of 125 to 230 cm/s: ration 2.0 ? 4.0: ICA EDV 40-100 cm/s. 4. Greater than 70% stenosis to near occlusion= ICA PSV > 230 cm/s: ratio > 4.0: ICA EDV > 100 cm/s. 5. Near occlusion= ICA PSV velocities may be low or undetectable: variable ratio and ICA EDV. 6. Total occlusion=unable to detect flow.
--- NOTE | 2018-07-09 15:51 | CT ---
EXAMINATION TYPE: CT brain wo con DATE OF EXAM: 07/09/2018 HISTORY: Syncope and memory loss. CT DLP: 753.3 mGycm. Automated Exposure Control for Dose Reduction was Utilized. TECHNIQUE: CT scan of the head is performed without contrast. COMPARISON: CT brain June 25, 2017. FINDINGS: There is no acute intracranial hemorrhage or midline shift identified. There is diffuse v entricular and sulcal prominence consistent with diffuse age-related cerebral atrophy. There is low- attenuation in the periventricular white matter consistent with chronic small vessel ischemic change. The globes are intact and the visualized sinuses are clear. IMPRESSION: No acute intracranial hemorrhage or midline shift. There is mild to moderate diffuse ag e-related cerebral atrophy and moderate to severe chronic small vessel ischemic change redemonstrated . No significant change from prior CT.
[2018-07-09] MEDS: CARVEDILOL 6.25 MG TAB PO SCH (17:59)
[2018-07-09] MEDS: SODIUM CHLORIDE 0.9% 1,000 ML IV SCH ×2 (19:32→20:43)
[2018-07-10] MEDS: CARVEDILOL 6.25 MG TAB PO SCH (07:38)
[2018-07-10 07:59] LABS: Basophils % (A) 1 %; Eosinophils % (A) 1 %; HCT 40.2 % (34.0-46.0); HGB 13.5 gm/dL (11.4-16.0); Lymphocytes # (A) 1.2 k/uL (1.0-4.8); Lymphocytes % (A) 18 %; MCHC 33.5 g/dL (31.0-37.0); MCV 89.6 fL (80.0-100.0); Mean Platelet Volume 8.2; Monocytes # (A) 0.3 k/uL (0-1.0); Monocytes % (A) 4 %; Neutrophils % (A) 76 %; Platelet Count 191 k/uL (150-450); RBC 4.49 m/uL (3.80-5.40); RDW 14.2 % (11.5-15.5); WBC 6.5 k/uL (3.8-10.6)
[2018-07-10 08:10] LABS: ALT 30 U/L (9-52); AST 25 U/L (14-36); Albumin 3.9 g/dL (3.5-5.0); Alkaline Phosphatase 67 U/L (38-126); Anion Gap 6 mmol/L; Blood Urea Nitrogen 14 mg/dL (7-17); Calcium 9.4 mg/dL (8.4-10.2); Carbon Dioxide 28 mmol/L (22-30); Chloride 105 mmol/L (98-107); Cholesterol 188 mg/dL (<200); Glucose 116 mg/dL (74-99); HDL Cholesterol 58 mg/dL (40-60); LDL Cholesterol,Calculated 113 mg/dL (0-99); Potassium 4.1 mmol/L (3.5-5.1); Sodium 139 mmol/L (137-145); Total Bilirubin 0.7 mg/dL (0.2-1.3); Total Protein 6.7 g/dL (6.3-8.2); Triglycerides 84 mg/dL (<150)
[2018-07-10] MEDS: FAMOTIDINE 20 MG TAB PO SCH (09:16)
--- NOTE | 2018-07-10 09:41 | CONS ---
CONSULTATION DATE OF CONSULTATION: 07/09/2018 CHIEF COMPLAINT: Transient ischemic attack. HISTORY OF PRESENT ILLNESS: The patient is a pleasant 77-year-old female, who was being evaluated today on 07/09/2018 by the Neurology Service per the request of Dr. Mckeon for a transient ischemic attack. The patient was brought into [facility] emergency room after she had a transient episode of visual loss. The patient states that she was vacuuming and had a sudden onset of visual loss where she felt like her visual field was disappearing from the upper visual field going down and involving both eyes. The symptoms lasted less than 1 minute and was associated with a generalized headache that was more focal in the frontal region. The patient's blood pressure was quite elevated when she arrived to the emergency room with the reading as high as 224/69. She does have history of hypertension but it was discovered that she was taking her blood pressure medication once daily instead of the prescribed twice daily. Dr. Mckeon did adjust her blood pressure medication on this admission. A CT scan of the brain was done, which showed generalized atrophy and small-vessel ischemic changes and was felt to be unchanged when compared to her 2007 study. Her CBC, comprehensive metabolic profile, cardiac enzymes and urinalysis were reviewed and were normal. Her carotid Doppler showed bilateral plaques with no hemodynamically significant stenosis. At the time of my evaluation, she is sitting up in her bed and appears to be in no acute distress. She denies any recurrence of any visual changes and denies any neurological symptoms at this time. Her headache has resolved. She has been started on aspirin 81 mg daily. She states that she does take aspirin at home but not usually on a daily basis. PAST MEDICAL HISTORY: Hypertension and arthritis. She also has history of spine surgery, hysterectomy, tonsillectomy, cataract surgery, and joint replacement surgery. SOCIAL HISTORY: She denies any tobacco or drug use. She occasionally drinks alcohol. FAMILY HISTORY: Positive for cancer. HOME MEDICATIONS: Reviewed in the chart. ALLERGIES: IV DYE, PENICILLIN, SULFA DRUGS, HYDRALAZINE, CODEINE. REVIEW OF SYSTEMS: CONSTITUTIONAL: Negative. EYES: As mentioned above. ENT: Negative. CARDIOVASCULAR: As mentioned above. RESPIRATORY: Negative. NEUROLOGICAL: As mentioned above. GASTROINTESTINAL: Negative. GENITOURINARY: Negative. PSYCHIATRIC: Negative. DERMATOLOGICAL: Negative. MUSCULOSKELETAL: Positive for occasional joint pain. ENDOCRINE: Negative. PHYSICAL EXAM: Vital signs show a temperature of 98.1, pulse 66, respirations 16, blood pressure 167/63. GENERAL APPEARANCE: The patient is a well-developed elderly female, who appears to be in no acute distress. HEENT: Normocephalic, atraumatic, no facial asymmetry is seen. Extraocular muscles are intact, visual field testing was normal, no tenderness to palpation is felt along the oriental orthodox regions. NECK: Supple with no masses felt. CARDIOVASCULAR: Regular rate and rhythm. ABDOMEN: Nontender, nondistended. Extremity no edema or clubbing. Neurological exam the patient is awake and oriented x3. Speech and language are normal. Strength is full in all 4 extremities. Sensory exam was normal to light touch in all 4 extremities. [id number] testing showed no dysmetria. No facial asymmetry is seen on cranial nerve testing. IMPRESSION: 1. Transient ischemic attack. 2. Transient visual loss, resolved. 3. Uncontrolled hypertension. 4. Headache, resolved. RECOMMENDATION: The patient does appear to have suffered a transient ischemic attack with a transient episode of visual loss. Her headache was not localized in the temporal region. And even though I doubt any temporal arteritis, especially given the fact specially given the fact that the symptoms were bilateral, I will order an ESR and a CRP to rule out any evidence of temporal arteritis. Her transient ischemic attack was likely caused by her uncontrolled hypertension as she was not taking her blood pressure medication as prescribed. Dr. Mckeon did adjust her medications and her headache has resolved. Her carotid Doppler showed no hemodynamically significant stenosis and her CT scan of the brain was normal. I will order a fasting lipid panel, EEG, and serum homocystine level. Continue the rest of your current workup and management. Continue neuro checks. If her blood pressure is normalized by tomorrow, she will be cleared for discharge from a neurology standpoint. I will continue to follow with you. Further recommendations to follow. Thank you for allowing me to participate in the care of your patient. If you have any questions, please feel free to contact me. AMBREEN / LESLEY: [id number] /
--- NOTE | 2018-07-10 12:58 | ECHOF ---
Referral Reason:syncope, murmur MEASUREMENTS -------- HEIGHT: 160.0 cm WEIGHT: 51.7 kg BP: 180/87 RVIDd: 2.7 cm (< 3.3) IVSd: 1.1 cm (0.6 - 1.1) LVIDd: 4.0 cm (3.9 - 5.3) LVPWd: 1.1 cm (0.6 - 1.1) IVSs: 1.2 cm LVIDs: 2.8 cm LVPWs: 1.2 cm LA Diam: 3.5 cm (2.7 - 3.8) LAESV Index (A-L): 26.73 ml/m Ao Diam: 3.1 cm (2.0 - 3.7) AV Cusp: 2.1 cm (1.5 - 2.6) MV EXCURSION: 12.408 mm (> 18.000) MV EF SLOPE: 72 mm/s (70 - 150) EPSS: 0.3 cm MV E Jarret: 0.86 m/s MV DecT: 194 ms MV A Jarret: 0.85 m/s MV E/A Ratio: 1.01 AR PHT: 445 ms RAP: 5.00 mmHg RVSP: 37.62 mmHg FINDINGS -------- Sinus rhythm. This was a technically good study. The left ventricular size is normal. There is borderline concentric left ventricular hypertrophy. Overall left ventricular systolic function is normal with, an EF between 55 - 60 %. The right ventricle is normal in size. Normal LA size by volume 22+/-6 ml/m2. The right atrium is normal in size. The aortic valve is trileaflet and appears structurally normal. There is moderate aortic regurgitat ion. The mitral valve is normal. Mild tricuspid regurgitation present. There is mild pulmonary hypertension. The right ventricular systolic pressure, as measured by Doppler, is 37.62mmHg. Trace/mild (physiologic) pulmonic regurgitation. The aortic root size is normal. Normal inferior vena cava with normal inspiratory collapse consistent with estimated right atrial pre ssure of 5 mmHg. There is no pericardial effusion. CONCLUSIONS -------- 1. Sinus rhythm. 2. This was a technically good study. 3. The left ventricular size is normal. 4. There is borderline concentric left ventricular hypertrophy. 5. Overall left ventricular systolic function is normal with, an EF between 55 - 60 %. 6. The right ventricle is normal in size. 7. Normal LA size by volume 22+/-6 ml/m2. 8. The right atrium is normal in size. 9. The aortic valve is trileaflet and appears structurally normal. 10. There is moderate aortic regurgitation. 11. The mitral valve is normal. 12. Mild tricuspid regurgitation present. 13. There is mild pulmonary hypertension. 14. The right ventricular systolic pressure, as measured by Doppler, is 37.62mmHg. 15. Trace/mild (physiologic) pulmonic regurgitation. 16. The aortic root size is normal. 17. Normal inferior vena cava with normal inspiratory collapse consistent with estimated right atrial pressure of 5 mmHg. 18. There is no pericardial effusion. MANAGER DRUG SAFETY: Vanessa Mead RDCS
[2018-07-10] MEDS: SODIUM CHLORIDE 0.9% 1,000 ML IV SCH (13:43)
--- NOTE | 2018-07-10 14:00 | P.PN ---
Subjective This is a pleasant 77-year-old female past medical history significant for hypertension and heart murmur. She denies history of coronary artery disease, dyslipidemia or diabetes mellitus. She used to follow with cardiology for her murmur but in the recent years has followed with her PCP only. She lives in [place] and recently changed primary physicians from Dr. Bojorquez to Dr. Crain for convenience to her home. She saw Dr. Crain in the office and was told she could discontinue her hydrochlorothiazide and decrease her coreg to 3.125 mg BID. Her first time doing this was Sunday. She took 3.125 mg BID on Sunday. She woke up Sunday morning feeling normal at first. She started walking through her house to let her dog out and she started feeling very foggy and light headed. She states it felt like everything around her was getting black. She felt as though she was going to pass out so she lowered herself to the floor and laid down. She continued to feel this way for awhile. She was able to crawl to her couch and phone her niece for help. From that time on she doesn't quite recall exactly the course of events leading to her coming to the hospital. Upon arrival her blood pressure was 224/69. She was given IV hydralazine in ED and apparently had a reaction. In follow up today she is seen and examined with her sister at the bedside. She states she had a dizzy episode yesterday afternoon. It appears this was connected with an episode of bradycardia, heart rate was 40. This quickly resolved and her symptoms subsided. She denies chest pain, shortness of breath or palpitations. Echo obtained reveals preserved left ventricular systolic function with ejection fraction 55-60%, moderate aortic regurgitation, mild tricuspid regurgitation and mild pulmonary hypertension with an RVSP of 37 mmHg. She has also been seen by neurology and been diagnosed with a TIA. GENERAL: This is a 77-year-old female in no apparent distress at the time of my examination. HEENT: Head is atraumatic, normocephalic. Pupils are equal, round. Sclerae anicteric. Conjunctivae are clear. Mucous membranes of the mouth are moist. Neck is supple. There is no jugular venous distention. No carotid bruit is heard. LUNGS: Clear to auscultation no wheezes, rales or rhonchi. No chest wall tenderness is noted on palpation or with deep breathing. HEART: Regular rate and rhythm with murmur noted at the base, no rubs or gallops. S1 and S2 heard. EXTREMITIES: No evidence of peripheral edema and no calf tenderness noted. ASSESSMENT Hypertensive emergency TIA Dizziness with episode of confusion Aortic regurgitation Pulmonary hypertension PLAN Decrease carvedilol back down to 3.125 mg twice a day secondary to bradycardia. Add amlodipine 5 mg daily. Further evaluation of the aortic valve to take place as an outpatient. Stable from a cardiac perspective. Ongoing management of blood pressure regimen can be done as an outpatient. This has been discussed in great detail with the patient as well as her sister. We recommend she check her blood pressure daily for the next 2 weeks and bring a record of her readings with her to her follow-up appointment with Dr. Noyola. Nurse Practitioner note has been reviewed, I agree with a documented findings and plan of care. Patient was seen and examined. Objective - Vital Signs Vital signs: Vital Signs Temp 97.7 F 07/10/18 07:41 Pulse 62 07/10/18 09:20 Resp 16 07/10/18 07:41 BP 145/61 07/10/18 09:20 Pulse Ox 97 07/10/18 07:41 Intake & Output 07/09/18 07/10/18 07/10/18 18:59 06:59 18:59 Intake Total 1220 680 Balance 1220 680 Intake: Oral 1220 180 Other 500 Other: # Voids 1 1 - Labs CBC & Chem 7: 07/10/18 07:29 07/10/18 07:29 Labs: Abnormal Lab Results - Last 24 Hours (Table) 07/10/18 Range/Units 07:29 Glucose 116 H (74-99) mg/dL LDL Cholesterol, Calc 113 H (0-99) mg/dL
[2018-07-10] MEDS ORDERED: ONDANSETRON 4 MG TAB PO PRN (14:40)
[2018-07-10] MEDS: amLODIPine 5 MG TAB PO SCH (15:13)
--- NOTE | 2018-07-10 15:29 | P.PN ---
Subjective Progress Note Date: 07/10/18 This is a 77-year-old female, patient of Dr. Crain she has a known past medical history of hypertension and heart murmur. Patient presents to the emergency room initially complaining of a near syncopal episode. It occurred about one hour prior to her arrival. She was vacuuming when her vision surgical black. She described it as a curtain going down both of her eyes. She tried to make it to the couch incontinent and went down on her knees. At that time she is unsure if she fully lost consciousness or not. Her vision did return quickly she was able to get to the phone and call for help. Patient is having difficulty relating the full story. She says she feels that she is her mind is fuzzy and cannot recall the details. She reports that she had been cutting her Coreg medication in half. In that morning she did not cut it in half. She also completed an antibiotic azithromycin for sinus infection that morning. Patient also is having very elevated blood pressure as high as 224/ 69. In the ER she was given IV hydralazine and blood pressure normalized. However the medication cost her have an ALLERGIC reaction including which had included erythema of the face and tremors. Then patient had a syncopal episode in the emergency department after administering the hydralazine. Patient does not recall this event. Patient denies any chest pain or shortness of breath, nausea or vomiting, fever chills or sweats, bowel movement changes or urinary symptoms. Cardiology has been consulted port. They've ordered a 2-D echo and carotid ultrasound has been ordered as well. For the ALLERGIC reaction to the hydralazine IV Solu-Medrol and Pepcid was administered. Rash has resolved. Patient is alert and orientated to 3. She does live alone. She denies any weakness or headaches On 07/10/2018 patient states she is eager to go home but did experience another episode of dizziness with nausea and feeling of tunnel vision. Discussed case with cardiology services. Cardiology believes this is more neuro related. Advised patient that we would like her to stay for further evaluation. At this time patient denies chest pain or shortness of breath. Patient denies any urinary burning or frequency. Objective - Vital Signs Vital signs: Vital Signs Temp 97.7 F 07/10/18 07:41 Pulse 62 07/10/18 09:20 Resp 16 07/10/18 07:41 BP 145/61 07/10/18 09:20 Pulse Ox 97 07/10/18 07:41 Intake & Output 07/09/18 07/10/18 07/10/18 18:59 06:59 18:59 Intake Total 1220 860 Balance 1220 860 Intake: Oral 1220 360 Other 500 Other: # Voids 1 1 - Exam Head normocephalic Neck supple Lungs clear to auscultation bilaterally no wheezing or crackles Heart regular rate and rhythm S1-S2, no rub or gallop Abdomen is soft nontender nondistended positive bowel sounds no hepatosplenomegaly Extremities no edema Neuro alert and orientated to 3 - Labs CBC & Chem 7: 07/10/18 07:29 07/10/18 07:29 Labs: Abnormal Lab Results - Last 24 Hours (Table) 07/10/18 Range/Units 07:29 Glucose 116 H (74-99) mg/dL LDL Cholesterol, Calc 113 H (0-99) mg/dL Assessment and Plan Assessment: 1. Syncopal episode: Workup in progress. Continue telemetry monitoring. Check echo and carotid ultrasound. Check orthostatic blood pressure. Cardiology on consult. Urinalysis is negative. EKG sinus rhythm. Troponin negative. D-dimer normal at 0.53. Per cardiology services Coreg has been consulted on to 3.125 mg twice a day and Norvasc 5 mg has been added for blood pressure control. Further evaluation of the aortic valve to take place as outpatient patient is stable from a cardiac perspective. Head CT completed showing no acute intracranial hemorrhage or midline shift. There is mild to moderate diffuse age-related cerebral atrophy and moderate to severe chronic small vessel ischemic changes redemonstrated. No significant change from prior CT. Per neurology services patient may have suffered from a trans-it ischemic attack with transient episode of visual loss carotid Doppler completed showing no hemodynamically significant stenosis. EEG fasting lipid panel and serum homocysteine level has been ordered. 2. Hypertensive emergency with a blood pressure of 224/69 was given hydralazine. Blood pressures are still elevated this morning cardiology did restart the Coreg. Continue to monitor blood pressure. Per cardiology services patient advised to check her blood pressure daily for the next 2 weeks and bring record of her readings with her to follow-up with Dr. Douglass 3. ALLERGIC reaction to hydralazine causing rash and syncopal episode. Patient given IV Solu-Medrol and IV Pepcid. 4. History of essential hypertension 5. History of heart murmur. 2-D echo completed showing EF between 55 and 60% with moderate amount of aortic regurg GI prophylaxis Pepcid and DVT prophylaxis Lovenox I performed an examination of the patient and discussed their management with the Nurse Practitioner. I have reviewed the Nurse Practitioner's notes and agree with the documented findings and plan of care
--- NOTE | 2018-07-10 15:44 | P.PN ---
Subjective Progress Note Date: 07/10/18 Principal diagnosis: TIA Neurology is following on a 77-year-old female for TIA. Patient was brought to the emergency room for transient episode of visual loss. Patient was vacuuming and had sudden onset of visual loss with upper visual field going down involving both eyes. Symptoms lasted less than 1 minute and was associated with generalized headache that was more focal in the frontal region. Patient's blood pressure was quite elevated when she arrived at the emergency room at 22 4 /69. Patient does have known history of hypertension but was not compliant with medication. CT brain noted chronic small vessel ischemic disease and generalized atrophy. CBC, CMP and cardiac enzymes were normal. Carotid Doppler showed bilateral plaques with no hemodynamically significant stenosis. EEG has been ordered and results are pending. Patient is also been suffering over the last 6-12 months with increased memory loss. On contact, patient was alert and oriented 3, resting in bed in no acute distress. Visitors were in the room. She denies any new visual changes today. Patient does state that she has been increasingly anxious about returning home and being alone. Patient states that as a result of that she has been having some nausea and provider gave order to nursing for Zofran 8 mg 3 times a day when necessary to assist with nausea. Patient states that her previously described syncope is more characterized as disequilibrium with more of an unsteady sensation with upright activity and ambulation. Objective - Vital Signs Vital signs: Vital Signs Temp 97.7 F 07/10/18 07:41 Pulse 62 07/10/18 09:20 Resp 16 07/10/18 07:41 BP 145/61 07/10/18 09:20 Pulse Ox 97 07/10/18 07:41 Intake & Output 07/09/18 07/10/18 07/10/18 18:59 06:59 18:59 Intake Total 1220 860 Balance 1220 860 Intake: Oral 1220 360 Other 500 Other: # Voids 1 1 - Exam Gen. appearance: Alert, in no apparent distress Head: Atraumatic normocephalic, normal inspection Eyes: Well appearance, PERRL, EOMI. absent: Scleral icterus, conjunctival injection, nystagmus, periorbital swelling. Ear nose and throat: Normal exam, mucous membranes moist Neck: Normal inspection. Absent tenderness, lymphadenopathy Respiratory: No increased work of breathing. Cardiovascular: Regular rate, normal rhythm, normal heart sounds. Absent systolic murmur, diastolic murmur, rubs, gallops, clicks GIabdominal: Normal bowel sounds, non distended, no tenderness, no guarding, no rebound, no rigidity. Extremities: All range of motion, normal capillary refill, no tenderness, pedal edema, joint swelling, calf tenderness Neurological: Alert and oriented 3, cranial nerves II through XII intact, no unilateral lateralizing weakness, no seizure activity noted on physical exam, no pronator drift and no nystagmus. Psychological: Mood and affect appropriate setting - Labs CBC & Chem 7: 07/10/18 07:29 07/10/18 07:29 Labs: Abnormal Lab Results - Last 24 Hours (Table) 07/10/18 Range/Units 07:29 Glucose 116 H (74-99) mg/dL LDL Cholesterol, Calc 113 H (0-99) mg/dL Assessment and Plan (1) TIA (transient ischemic attack) Narrative/Plan: Patient does appear to have experienced a TIA which is largely resolved. Imaging has been negative for any acute process to this point. Patient's carotid Doppler noted no hemodynamically significant stenosis. EEG is currently ordered and pending. Patient is currently on 81 mg aspirin daily. Serum homocystine level is ordered. Lipid panel noted slightly elevated LDLs at 113, all other lipid variables were normal. Continue medication regimen as implemented. Discussed risk reduction. Current Visit: Yes Status: Acute Code(s): G45.9 - TRANSIENT CEREBRAL ISCHEMIC ATTACK, UNSPECIFIED SNOMED Code(s): 239986087 (2) Uncontrolled hypertension Narrative/Plan: Defer to primary team and cardiology Current Visit: Yes Status: Acute Code(s): I10 - ESSENTIAL (PRIMARY) HYPERTENSION SNOMED Code(s): 60112946 (3) Disequilibrium Narrative/Plan: Given the patient's new description and symptoms is conveyed while rounding today, further workup can be performed in the outpatient setting related to disequilibrium. Patient's carotid Doppler study noted no hemodynamically significant stenosis at this time. Neurology will continue to follow provide updates as needed or warranted. Anticipate patient to be cleared by neurology tomorrow for discharge. I discussed the patients history, physical exam, diagnostic testing, lab work and imaging with Dr Gonzales prior to implementing the plan above. He agrees with the plan as implemented prior to implementation. Current Visit: Yes Status: Acute Code(s): R42 - DIZZINESS AND GIDDINESS SNOMED Code(s): 80829242 (4) Hypertension Current Visit: Yes Status: Acute Code(s): I10 - ESSENTIAL (PRIMARY) HYPERTENSION SNOMED Code(s): 19189919 (5) Near syncope Current Visit: Yes Status: Acute Code(s): R55 - SYNCOPE AND COLLAPSE SNOMED Code(s): 388678834
[2018-07-10] MEDS: CARVEDILOL 3.125 MG TAB PO SCH (17:48)
[2018-07-10] MEDS: ASPIRIN 81 MG PO SCH (22:25)
[2018-07-11] MEDS: SODIUM CHLORIDE 0.9% 1,000 ML IV SCH ×2 (00:21→16:12)
[2018-07-11] MEDS: ENOXAPARIN 40 MG/0.4 ML SYRINGE SQ SCH (07:56)
[2018-07-11] MEDS: FAMOTIDINE 20 MG TAB PO SCH (07:56)
[2018-07-11] MEDS: CARVEDILOL 3.125 MG TAB PO SCH ×2 (07:57→16:24)
[2018-07-11] MEDS: amLODIPine 5 MG TAB PO SCH (07:57)
--- NOTE | 2018-07-11 08:16 | P.PN ---
Subjective Progress Note Date: 07/11/18 Principal diagnosis: TIA Neurology is following on a 77-year-old female for TIA. Patient was brought to the emergency room for transient episode of visual loss. Patient was vacuuming and had sudden onset of visual loss with upper visual field going down involving both eyes. Symptoms lasted less than 1 minute and was associated with generalized headache that was more focal in the frontal region. Patient's blood pressure was quite elevated when she arrived at the emergency room at 22 4 /69. Patient does have known history of hypertension but was not compliant with medication. CT brain noted chronic small vessel ischemic disease and generalized atrophy. CBC, CMP and cardiac enzymes were normal. Carotid Doppler showed bilateral plaques with no hemodynamically significant stenosis. EEG has been ordered and results are pending. Patient is also been suffering over the last 6-12 months with increased memory loss. 07/11/18: On contact, patient was alert and oriented 3, resting in bed in no acute distress. No visitors were in the room. She denies any new visual changes today. Patient states that the zofran has relieved her nausea. Patient states that her previously described syncope is more characterized as disequilibrium with more of an unsteady sensation with upright activity and ambulation. Nursing reports that the patients blood pressure has been increasing again as well. 07/10/18 On contact, patient was alert and oriented 3, resting in bed in no acute distress. Visitors were in the room. She denies any new visual changes today. Patient does state that she has been increasingly anxious about returning home and being alone. Patient states that as a result of that she has been having some nausea and provider gave order to nursing for Zofran 8 mg 3 times a day when necessary to assist with nausea. Patient states that her previously described syncope is more characterized as disequilibrium with more of an unsteady sensation with upright activity and ambulation. Objective - Vital Signs Vital signs: Vital Signs Temp 98.1 F 07/11/18 07:57 Pulse 73 07/11/18 07:57 Resp 16 07/11/18 07:57 BP 204/46 07/11/18 07:57 Pulse Ox 98 07/11/18 07:57 Intake & Output 07/10/18 07/11/18 07/11/18 18:59 06:59 18:59 Intake Total 1450 Balance 1450 Intake: Oral 950 Other 500 Other: # Voids 1 - Labs CBC & Chem 7: 07/10/18 07:29 07/10/18 07:29 Labs: Abnormal Lab Results - Last 24 Hours (Table) 07/10/18 Range/Units 07:29 Glucose 116 H (74-99) mg/dL LDL Cholesterol, Calc 113 H (0-99) mg/dL Assessment and Plan (1) TIA (transient ischemic attack) Narrative/Plan: Patient does appear to have experienced a TIA which is now resolved. Imaging has been negative for any acute process to this point. Patient's carotid Doppler noted no hemodynamically significant stenosis. EEG is currently ordered and pending. Patient is currently on 81 mg aspirin daily. Serum homocystine level is ordered. Lipid panel noted slightly elevated LDLs at 113, all other lipid variables were normal. Continue medication regimen as implemented. Discussed risk reduction. Current Visit: Yes Status: Acute Code(s): G45.9 - TRANSIENT CEREBRAL ISCHEMIC ATTACK, UNSPECIFIED SNOMED Code(s): 095894029 (2) Uncontrolled hypertension Narrative/Plan: Defer to primary team and cardiology, appears still unresolved at this time. Current Visit: Yes Status: Acute Code(s): I10 - ESSENTIAL (PRIMARY) HYPERTENSION SNOMED Code(s): 11055575 (3) Disequilibrium Narrative/Plan: Given the patient's new description and symptoms as conveyed while rounding yesterday, further workup can be performed in the outpatient setting related to disequilibrium. Patient's carotid Doppler study noted no hemodynamically significant stenosis at this time. * If patient's EEG is normal, patient can be cleared for discharge from a neurological standpoint and further neurological workup can be addressed in the outpatient setting. * If patient's EEG is the only remaining testing prior to discharge and cannot be completed due to the holiday, EEG can be performed in the out patient setting during follow up. * If discharged, advise patient to follow up in our office in 14 days. * Continue aspirin as implemented at discharge. Neurology will follow on an "as needed" basis. I discussed the patients history, physical exam, diagnostic testing, lab work and imaging with Dr Gonzales prior to implementing the plan above. He agrees with the plan as implemented prior to implementation. Current Visit: Yes Status: Acute Code(s): R42 - DIZZINESS AND GIDDINESS SNOMED Code(s): 97540970 (4) Near syncope Current Visit: Yes Status: Acute Code(s): R55 - SYNCOPE AND COLLAPSE SNOMED Code(s): 238701439
[2018-07-11 08:21] LABS: Basophils # (A) 0.1 k/uL (0-0.2); Basophils % (A) 1 %; Eosinophils # (A) 0.1 k/uL (0-0.7); Eosinophils % (A) 1 %; HCT 41.7 % (34.0-46.0); HGB 13.6 gm/dL (11.4-16.0); Lymphocytes # (A) 1.5 k/uL (1.0-4.8); Lymphocytes % (A) 21 %; MCH 29.5 pg (25.0-35.0); MCHC 32.6 g/dL (31.0-37.0); MCV 90.4 fL (80.0-100.0); Mean Platelet Volume 8.2; Monocytes # (A) 0.4 k/uL (0-1.0); Monocytes % (A) 6 %; Neutrophils # (A) 4.8 k/uL (1.3-7.7); Neutrophils % (A) 70 %; Platelet Count 191 k/uL (150-450); RBC 4.62 m/uL (3.80-5.40); RDW 14.2 % (11.5-15.5)
[2018-07-11 08:32] LABS: ALT 29 U/L (9-52); AST 24 U/L (14-36); Albumin 3.8 g/dL (3.5-5.0); Alkaline Phosphatase 65 U/L (38-126); Anion Gap 7 mmol/L; Blood Urea Nitrogen 14 mg/dL (7-17); Calcium 9.2 mg/dL (8.4-10.2); Carbon Dioxide 27 mmol/L (22-30); Chloride 105 mmol/L (98-107); Glucose 104 mg/dL (74-99); Potassium 3.9 mmol/L (3.5-5.1); Sodium 139 mmol/L (137-145); Total Bilirubin 0.6 mg/dL (0.2-1.3); Total Protein 6.5 g/dL (6.3-8.2)
[2018-07-11] MEDS ORDERED: amLODIPine 5 MG TAB PO STA (11:49)
--- NOTE | 2018-07-11 12:04 | P.PN ---
Subjective Progress Note Date: 07/11/18 This is a 77-year-old female, patient of Dr. Crain she has a known past medical history of hypertension and heart murmur. Patient presents to the emergency room initially complaining of a near syncopal episode. It occurred about one hour prior to her arrival. She was vacuuming when her vision surgical black. She described it as a curtain going down both of her eyes. She tried to make it to the couch incontinent and went down on her knees. At that time she is unsure if she fully lost consciousness or not. Her vision did return quickly she was able to get to the phone and call for help. Patient is having difficulty relating the full story. She says she feels that she is her mind is fuzzy and cannot recall the details. She reports that she had been cutting her Coreg medication in half. In that morning she did not cut it in half. She also completed an antibiotic azithromycin for sinus infection that morning. Patient also is having very elevated blood pressure as high as 224/ 69. In the ER she was given IV hydralazine and blood pressure normalized. However the medication cost her have an ALLERGIC reaction including which had included erythema of the face and tremors. Then patient had a syncopal episode in the emergency department after administering the hydralazine. Patient does not recall this event. Patient denies any chest pain or shortness of breath, nausea or vomiting, fever chills or sweats, bowel movement changes or urinary symptoms. Cardiology has been consulted port. They've ordered a 2-D echo and carotid ultrasound has been ordered as well. For the ALLERGIC reaction to the hydralazine IV Solu-Medrol and Pepcid was administered. Rash has resolved. Patient is alert and orientated to 3. She does live alone. She denies any weakness or headaches On 07/10/2018 patient states she is eager to go home but did experience another episode of dizziness with nausea and feeling of tunnel vision. Discussed case with cardiology services. Cardiology believes this is more neuro related. Advised patient that we would like her to stay for further evaluation. At this time patient denies chest pain or shortness of breath. Patient denies any urinary burning or frequency. On 07/11/2018 patient is eager to go home. Patient is still having very elevated blood pressure in the 200s. Will give one-time dose of 5 mgnow. Change Norvasc daily to 10 mg. Will discuss with cardiology services. At this time patient denies chest pain or shortness breath. Patient denies nausea vomiting or diarrhea. Patient denies any urinary burning or frequency. explained to Patient that she is not safe for discharge at this time due to her extremely high blood pressure Objective - Vital Signs Vital signs: Vital Signs Temp 98.1 F 07/11/18 07:57 Pulse 73 07/11/18 11:53 Resp 16 07/11/18 07:57 BP 211/62 07/11/18 11:53 Pulse Ox 98 07/11/18 07:57 Intake & Output 07/10/18 07/11/18 07/11/18 18:59 06:59 18:59 Intake Total 1450 Balance 1450 Intake: Oral 950 Other 500 Other: # Voids 1 - Exam Head normocephalic Neck supple Lungs clear to auscultation bilaterally no wheezing or crackles Heart regular rate and rhythm S1-S2, no rub or gallop Abdomen is soft nontender nondistended positive bowel sounds no hepatosplenomegaly Extremities no edema Neuro alert and orientated to 3 - Labs CBC & Chem 7: 07/11/18 07:23 07/11/18 07:23 Labs: Abnormal Lab Results - Last 24 Hours (Table) 07/11/18 Range/Units 07:23 Glucose 104 H (74-99) mg/dL Assessment and Plan Assessment: 1. Syncopal episode related to TIA. Urinalysis is negative. EKG sinus rhythm. Troponin negative. D-dimer normal at 0.53. Per cardiology services Coreg has been consulted on to 3.125 mg twice a day and Norvasc 5 mg has been added for blood pressure control. Further evaluation of the aortic valve to take place as outpatient patient is stable from a cardiac perspective. Head CT completed showing no acute intracranial hemorrhage or midline shift. There is mild to moderate diffuse age-related cerebral atrophy and moderate to severe chronic small vessel ischemic changes redemonstrated. No significant change from prior CT. Per neurology services patient may have suffered from a trans- it ischemic attack with transient episode of visual loss carotid Doppler completed showing no hemodynamically significant stenosis. EEG fasting lipid panel and serum homocysteine level has been ordered. 2. Hypertensive emergency with a blood pressure of 224/69 was given hydralazine. Blood pressures are still elevated this morning cardiology did restart the Coreg. Continue to monitor blood pressure. Per cardiology services patient advised to check her blood pressure daily for the next 2 weeks and bring record of her readings with her to follow-up with Dr. Douglass. Norvasc 5 mg 1 time dose ordered. Norvasc Changed to 10 mg. Will discuss cardiology services to further assess. 3. ALLERGIC reaction to hydralazine causing rash and syncopal episode. Patient given IV Solu-Medrol and IV Pepcid. 4. History of essential hypertension 5. History of heart murmur. 2-D echo completed showing EF between 55 and 60% with moderate amount of aortic regurg GI prophylaxis Pepcid and DVT prophylaxis Lovenox Explained to patient that she is not safe for discharge due to extremely high blood pressure. I performed an examination of the patient and discussed their management with the Nurse Practitioner. I have reviewed the Nurse Practitioner's notes and agree with the documented findings and plan of care
[2018-07-11] MEDS: HYDROCHLOROTHIAZIDE 25 MG TAB PO SCH (16:24)
--- NOTE | 2018-07-11 19:09 | PN ---
PROGRESS NOTE Mrs. Rios is a 77-year-old female who presented with symptoms of dizziness. She is feeling well this morning, ambulating without difficulty. Her blood pressure is on the high side. She denies any chest pain. She denies any chest pain. She has no dizziness. No palpitation. She has been in sinus mechanism. She continued be on Coreg 3.125 mg twice a day in addition to amlodipine 10 mg daily. PHYSICAL EXAMINATION: Blood pressure 200/50 with a heart rate in the 70s. LUNGS: Clear. HEART: Regular rhythm S1, S2. No S3 with systolic ejection murmur. No diastolic murmur, no rub. ABDOMEN: Soft, nontender. EXTREMITIES: No edema. LAB DATA: Revealed BUN and creatinine of 14.69, potassium 3.9. IMPRESSION: 1. Hypertension, remains elevated. 2. Dizziness, improved. RECOMMENDATION: I have reviewed the results of her echocardiogram that revealed preserved left ventricular size and systolic function. Patient used to be on hydrochlorothiazide and does not recall that she had a problem with it. I will re-initiate the treatment with hydrochlorothiazide, increase her level of activity. Depending on the trend of blood pressure, further recommendation will be made. MMODL / IJN: [id number] /
[2018-07-11] MEDS: ASPIRIN 81 MG PO SCH (20:31)
[2018-07-12] MEDS: SODIUM CHLORIDE 0.9% 1,000 ML IV SCH ×2 (03:48→19:58)
[2018-07-12] MEDS: amLODIPine 10 MG TAB PO SCH (03:50)
[2018-07-12 08:13] LABS: Basophils # (A) 0.1 k/uL (0-0.2); Basophils % (A) 1 %; Eosinophils # (A) 0.2 k/uL (0-0.7); Eosinophils % (A) 2 %; HCT 45.5 % (34.0-46.0); HGB 14.9 gm/dL (11.4-16.0); Lymphocytes # (A) 1.7 k/uL (1.0-4.8); Lymphocytes % (A) 24 %; MCH 29.5 pg (25.0-35.0); MCHC 32.7 g/dL (31.0-37.0); MCV 90.1 fL (80.0-100.0); Mean Platelet Volume 7.9; Monocytes # (A) 0.5 k/uL (0-1.0); Monocytes % (A) 6 %; Neutrophils # (A) 4.6 k/uL (1.3-7.7); Neutrophils % (A) 65 %; Platelet Count 219 k/uL (150-450); RBC 5.05 m/uL (3.80-5.40); RDW 14.2 % (11.5-15.5); WBC 7.1 k/uL (3.8-10.6)
[2018-07-12 08:23] LABS: ALT 28 U/L (9-52); AST 23 U/L (14-36); Alkaline Phosphatase 78 U/L (38-126); Anion Gap 8 mmol/L; Blood Urea Nitrogen 14 mg/dL (7-17); Calcium 9.7 mg/dL (8.4-10.2); Carbon Dioxide 28 mmol/L (22-30); Chloride 102 mmol/L (98-107); Glucose 101 mg/dL (74-99); Potassium 3.8 mmol/L (3.5-5.1); Sodium 138 mmol/L (137-145); Total Bilirubin 0.7 mg/dL (0.2-1.3); Total Protein 6.9 g/dL (6.3-8.2)
[2018-07-12] MEDS: HYDROCHLOROTHIAZIDE 25 MG TAB PO SCH (09:06)
[2018-07-12] MEDS: FAMOTIDINE 20 MG TAB PO SCH (09:06)
[2018-07-12] MEDS: CARVEDILOL 3.125 MG TAB PO SCH ×2 (09:06→16:45)
[2018-07-12] MEDS: ENOXAPARIN 40 MG/0.4 ML SYRINGE SQ SCH (09:06)
--- NOTE | 2018-07-12 12:38 | P.PN ---
Subjective Progress Note Date: 07/12/18 This is a 77-year-old female, patient of Dr. Crain she has a known past medical history of hypertension and heart murmur. Patient presents to the emergency room initially complaining of a near syncopal episode. It occurred about one hour prior to her arrival. She was vacuuming when her vision surgical black. She described it as a curtain going down both of her eyes. She tried to make it to the couch incontinent and went down on her knees. At that time she is unsure if she fully lost consciousness or not. Her vision did return quickly she was able to get to the phone and call for help. Patient is having difficulty relating the full story. She says she feels that she is her mind is fuzzy and cannot recall the details. She reports that she had been cutting her Coreg medication in half. In that morning she did not cut it in half. She also completed an antibiotic azithromycin for sinus infection that morning. Patient also is having very elevated blood pressure as high as 224/ 69. In the ER she was given IV hydralazine and blood pressure normalized. However the medication cost her have an ALLERGIC reaction including which had included erythema of the face and tremors. Then patient had a syncopal episode in the emergency department after administering the hydralazine. Patient does not recall this event. Patient denies any chest pain or shortness of breath, nausea or vomiting, fever chills or sweats, bowel movement changes or urinary symptoms. Cardiology has been consulted port. They've ordered a 2-D echo and carotid ultrasound has been ordered as well. For the ALLERGIC reaction to the hydralazine IV Solu-Medrol and Pepcid was administered. Rash has resolved. Patient is alert and orientated to 3. She does live alone. She denies any weakness or headaches On 07/10/2018 patient states she is eager to go home but did experience another episode of dizziness with nausea and feeling of tunnel vision. Discussed case with cardiology services. Cardiology believes this is more neuro related. Advised patient that we would like her to stay for further evaluation. At this time patient denies chest pain or shortness of breath. Patient denies any urinary burning or frequency. On 07/11/2018 patient is eager to go home. Patient is still having very elevated blood pressure in the 200s. Will give one-time dose of 5 mgnow. Change Norvasc daily to 10 mg. Will discuss with cardiology services. At this time patient denies chest pain or shortness breath. Patient denies nausea vomiting or diarrhea. Patient denies any urinary burning or frequency. explained to Patient that she is not safe for discharge at this time due to her extremely high blood pressure On 07/12/2018 patient remains alert and oriented 3. His blood pressure remains high in the 190s. Cardiology did evaluate patient yesterday added hydrochlorothiazide. Norvasc also increased to 10 mg. At this time patient is still complaining of headache. Patient denies chest pain or shortness breath. Denies nausea vomiting or diarrhea. Patient denies any urinary burning or frequency. Objective - Vital Signs Vital signs: Vital Signs Temp 98.1 F 07/12/18 10:48 Pulse 95 07/12/18 10:48 Resp 18 07/12/18 01:07 BP 192/65 07/12/18 10:48 Pulse Ox 99 07/12/18 10:48 Intake & Output 07/11/18 07/12/18 07/12/18 18:59 06:59 18:59 Intake Total 1000 250 Balance 1000 250 Intake: Intake, IV Titration 150 Amount Sodium Chloride 0.9% 1, 150 000 ml @ 75 mls/hr IV . [id number] [facility] Rx#:[id number] Oral 1000 100 - Exam Head normocephalic Neck supple Lungs clear to auscultation bilaterally no wheezing or crackles Heart regular rate and rhythm S1-S2, no rub or gallop Abdomen is soft nontender nondistended positive bowel sounds no hepatosplenomegaly Extremities no edema Neuro alert and orientated to 3 - Labs CBC & Chem 7: 07/12/18 07:10 07/12/18 07:10 Labs: Abnormal Lab Results - Last 24 Hours (Table) 07/12/18 Range/Units 07:10 Glucose 101 H (74-99) mg/dL Assessment and Plan Assessment: 1. Syncopal episode related to TIA. Urinalysis is negative. EKG sinus rhythm. Troponin negative. D-dimer normal at 0.53. Per cardiology services Coreg has been consulted on to 3.125 mg twice a day and Norvasc 5 mg has been added for blood pressure control. Further evaluation of the aortic valve to take place as outpatient patient is stable from a cardiac perspective. Head CT completed showing no acute intracranial hemorrhage or midline shift. There is mild to moderate diffuse age-related cerebral atrophy and moderate to severe chronic small vessel ischemic changes redemonstrated. No significant change from prior CT. Per neurology services patient may have suffered from a trans- it ischemic attack with transient episode of visual loss carotid Doppler completed showing no hemodynamically significant stenosis. EEG fasting lipid panel and serum homocysteine level has been ordered. 2. Hypertensive emergency with a blood pressure of 224/69 was given hydralazine. Blood pressures are still elevated this morning cardiology did restart the Coreg. Continue to monitor blood pressure. Per cardiology services patient advised to check her blood pressure daily for the next 2 weeks and bring record of her readings with her to follow-up with Dr. Douglass. Norvasc 5 mg 1 time dose ordered. Norvasc Changed to 10 mg. advised that has been added per cardiology services. 3. ALLERGIC reaction to hydralazine causing rash and syncopal episode. Patient given IV Solu-Medrol and IV Pepcid. 4. History of essential hypertension 5. History of heart murmur. 2-D echo completed showing EF between 55 and 60% with moderate amount of aortic regurg GI prophylaxis Pepcid and DVT prophylaxis Lovenox Explained to patient that she is not safe for discharge due to extremely high blood pressure. I performed an examination of the patient and discussed their management with the Nurse Practitioner. I have reviewed the Nurse Practitioner's notes and agree with the documented findings and plan of care
[2018-07-12] MEDS ORDERED: ACETAMINOPHEN TAB 500 MG TAB PO PRN (13:09)
[2018-07-12] MEDS: LOSARTAN 50 MG TAB PO SCH (13:26)
--- NOTE | 2018-07-12 13:44 | P.PN ---
Subjective Progress Note Date: 07/12/18 A pleasant 77-year-old patient who presented with symptoms of dizziness. Her blood pressure has been elevated. She continues to complain of some dizziness as well as headache. Denies any chest discomfort or palpitations. Heart rate is stable and she is maintaining sinus rhythm. She continues to be on carvedilol 3.125 mg by mouth twice a day and amlodipine 10 mg daily. Blood pressure this morning has been 170s to 190s systolic. Objective - Vital Signs Vital signs: Vital Signs Temp 98.1 F 07/12/18 10:48 Pulse 67 07/12/18 12:56 Resp 18 07/12/18 01:07 BP 160/58 07/12/18 13:23 Pulse Ox 99 07/12/18 10:48 Intake & Output 07/11/18 07/12/18 07/12/18 18:59 06:59 18:59 Intake Total 1000 250 Balance 1000 250 Intake: Intake, IV Titration 150 Amount Sodium Chloride 0.9% 1, 150 000 ml @ 75 mls/hr IV . [id number] [facility] Rx#:[id number] Oral 1000 100 - Exam PHYSICAL EXAMINATION: HEENT: Head is atraumatic, normocephalic. Pupils equal, round. Neck is supple. There is no elevated jugular venous pressure. HEART EXAMINATION: Heart sounds regular, S1 and S2 with systolic murmur. CHEST EXAMINATION: Lungs are clear to auscultation and precussion. No chest wall tenderness is noted on palpation or with deep breathing. ABDOMEN: Soft, nontender. EXTREMITIES: 2+ peripheral pulses with no evidence of peripheral edema and no calf tenderness noted. NEUROLOGIC patient is awake, alert and oriented x3. . - Labs CBC & Chem 7: 07/12/18 07:10 07/12/18 07:10 Labs: Abnormal Lab Results - Last 24 Hours (Table) 07/12/18 Range/Units 07:10 Glucose 101 H (74-99) mg/dL Assessment and Plan Assessment: #1 hypertension, remains poorly controlled #2 dizziness Plan: From bias binding folder perspective, we will continue hydrochlorothiazide, amlodipine , carvedilol and losartan which is new. She needed to monitor blood pressure closely. Further recommendations to follow. [employer] note has been reviewed, I agree with a documented findings and plan of care. Patient was seen and examined.
--- NOTE | 2018-07-12 15:13 | US ---
EXAMINATION TYPE: US renal artery duplex complet DATE OF EXAM: 07/12/2018 COMPARISON: NONE CLINICAL HISTORY: r/o renal artery stenosis. HTN for approximately 3 years, controlled on meds per luis m sánchez. MEASUREMENTS: RENAL SIZE: Rt Kidney: 8.9 x 3.6 x 4.2 cm Lt Kidney: 9.2 x 4.9 x 4.3 cm RESISTANCE INDEX Right: 0.69 Left: 0.64 RA/AO RATIO (< 3.5 ) Right: 1.1 Left: 1.5 RA VELOCITY ( < 180 cm/s) Right: 166 Left: 223 mid, could be technical. Kidneys are unremarkable. Aorta is calcified. Mildly elevated left mid renal artery velocity, could b e technical as vessel is tortuous. Good upstroke on segmentals at renal hilum. No other ultrasound ev idence for renal artery stenosis. IMPRESSION: Findings do not support renal arterial stenosis despite the elevated left renal arterial velocity marlys t is thought to be related to tortuosity of the artery. CT abdomen could also relate and assessment o f degree of stenosis.
[2018-07-12] MEDS: ASPIRIN 81 MG PO SCH (22:27)
[2018-07-13 00:52] VITALS: RESP 16
[2018-07-13 08:54] LABS: Basophils # (A) 0.1 k/uL (0-0.2); Basophils % (A) 1 %; Eosinophils # (A) 0.1 k/uL (0-0.7); Eosinophils % (A) 1 %; HCT 45.4 % (34.0-46.0); HGB 14.9 gm/dL (11.4-16.0); Lymphocytes # (A) 1.1 k/uL (1.0-4.8); Lymphocytes % (A) 17 %; MCH 29.5 pg (25.0-35.0); MCHC 32.9 g/dL (31.0-37.0); MCV 89.5 fL (80.0-100.0); Mean Platelet Volume 8.1; Monocytes # (A) 0.5 k/uL (0-1.0); Monocytes % (A) 7 %; Neutrophils # (A) 4.7 k/uL (1.3-7.7); Neutrophils % (A) 73 %; Platelet Count 223 k/uL (150-450); RBC 5.07 m/uL (3.80-5.40); RDW 14.4 % (11.5-15.5); WBC 6.5 k/uL (3.8-10.6)
[2018-07-13] MEDS: SODIUM CHLORIDE 0.9% 1,000 ML IV SCH (09:25)
[2018-07-13 09:28] LABS: Albumin 3.9 g/dL (3.5-5.0); Calcium 9.5 mg/dL (8.4-10.2); Potassium 3.8 mmol/L (3.5-5.1); Total Bilirubin 0.8 mg/dL (0.2-1.3); Total Protein 6.7 g/dL (6.3-8.2)
[2018-07-13 09:46] VITALS: BP 163/54; PULSE 72; TEMP 98
[2018-07-13] MEDS: CARVEDILOL 3.125 MG TAB PO SCH (09:51)
[2018-07-13] MEDS: amLODIPine 10 MG TAB PO SCH (09:51)
[2018-07-13] MEDS: LOSARTAN 50 MG TAB PO SCH (09:52)
[2018-07-13] MEDS: FAMOTIDINE 20 MG TAB PO SCH (09:52)
[2018-07-13] MEDS: HYDROCHLOROTHIAZIDE 25 MG TAB PO SCH (09:52)
--- NOTE | 2018-07-13 10:42 | P.DS ---
Providers Date of admission: 07/08/18 18:20 Expected date of discharge: 07/13/18 Attending physician: Abdirizak Mckeon Consults: 07/08/18 17:53 Consult Physician Stat Consulting Provider: Rajesh Noyola Consult Reason/Comments: near syncope, hypertension Do you want consulting provider notified?: Yes 07/09/18 14:16 Consult Physician Routine Consulting Provider: Christoph Gonzales Consult Reason/Comments: syncope, memory loss Do you want consulting provider notified?: Yes Primary care physician: Charlette Crain Hospital Course: Diagnosis on discharge: 1. Syncopal episode related to TIA. Urinalysis is negative. EKG sinus rhythm. Troponin negative. D-dimer normal at 0.53. Per cardiology services Coreg has been consulted on to 3.125 mg twice a day and Norvasc 5 mg has been added for blood pressure control. Further evaluation of the aortic valve to take place as outpatient patient is stable from a cardiac perspective. Head CT completed showing no acute intracranial hemorrhage or midline shift. There is mild to moderate diffuse age-related cerebral atrophy and moderate to severe chronic small vessel ischemic changes redemonstrated. No significant change from prior CT. Per neurology services patient may have suffered from a trans- it ischemic attack with transient episode of visual loss carotid Doppler completed showing no hemodynamically significant stenosis. EEG fasting lipid panel and serum homocysteine level has been ordered. 2. Hypertensive emergency with a blood pressure of 224/69 was given hydralazine. Blood pressures are still elevated this morning cardiology did restart the Coreg. Patient was unable to tolerate hydralazine Continue to monitor blood pressure. Per cardiology services patient advised to check her blood pressure daily for the next 2 weeks and bring record of her readings with her to follow-up with Dr. Douglass. Norvasc 5 mg 1 time dose ordered. Norvasc Changed to 10 mg. advised that has been added per cardiology services. Blood pressure continued to be elevated losartan with hydrochlorothiazide was added, at the time of discharge patient will be on Coreg 3.125 mg twice daily, Norvasc 10 mg daily, losartan with hydrochlorothiazide 100/25 one daily patient will follow closely with her primary care physician Dr. Crain she will also follow with cardiology in 1-2 weeks 3. ALLERGIC reaction to hydralazine causing rash and syncopal episode. Patient given IV Solu-Medrol and IV Pepcid. 4. History of essential hypertension 5. History of heart murmur. 2-D echo completed showing EF between 55 and 60% with moderate amount of aortic regur Hospital course: This is a 77-year-old female, patient of Dr. Crain she has a known past medical history of hypertension and heart murmur. Patient presents to the emergency room initially complaining of a near syncopal episode. It occurred about one hour prior to her arrival. She was vacuuming when her vision surgical black. She described it as a curtain going down both of her eyes. She tried to make it to the couch incontinent and went down on her knees. At that time she is unsure if she fully lost consciousness or not. Her vision did return quickly she was able to get to the phone and call for help. Patient is having difficulty relating the full story. She says she feels that she is her mind is fuzzy and cannot recall the details. She reports that she had been cutting her Coreg medication in half. In that morning she did not cut it in half. She also completed an antibiotic azithromycin for sinus infection that morning. Patient also is having very elevated blood pressure as high as 224/ 69. In the ER she was given IV hydralazine and blood pressure normalized. However the medication cost her have an ALLERGIC reaction including which had included erythema of the face and tremors. Then patient had a syncopal episode in the emergency department after administering the hydralazine. Patient does not recall this event. Patient denies any chest pain or shortness of breath, nausea or vomiting, fever chills or sweats, bowel movement changes or urinary symptoms. Cardiology has been consulted port. They've ordered a 2-D echo and carotid ultrasound has been ordered as well. For the ALLERGIC reaction to the hydralazine IV Solu-Medrol and Pepcid was administered. Rash has resolved. Patient is alert and orientated to 3. She does live alone. She denies any weakness or headaches On 07/10/2018 patient states she is eager to go home but did experience another episode of dizziness with nausea and feeling of tunnel vision. Discussed case with cardiology services. Cardiology believes this is more neuro related. Advised patient that we would like her to stay for further evaluation. At this time patient denies chest pain or shortness of breath. Patient denies any urinary burning or frequency. On 07/11/2018 patient is eager to go home. Patient is still having very elevated blood pressure in the 200s. Will give one-time dose of 5 mgnow. Change Norvasc daily to 10 mg. Will discuss with cardiology services. At this time patient denies chest pain or shortness breath. Patient denies nausea vomiting or diarrhea. Patient denies any urinary burning or frequency. explained to Patient that she is not safe for discharge at this time due to her extremely high blood pressure On 07/12/2018 patient remains alert and oriented 3. His blood pressure remains high in the 190s. Cardiology did evaluate patient yesterday added hydrochlorothiazide. Norvasc also increased to 10 mg. At this time patient is still complaining of headache. Patient denies chest pain or shortness breath. Denies nausea vomiting or diarrhea. Patient denies any urinary burning or frequency. On 07/13/2018 patient is doing well she is alert and oriented 3 in no apparent distress blood pressure has improved was systolic in the 150-160 range patient is asymptomatic she denies any headache or dizziness she denies any chest pain or shortness of breath at this point patient will be discharged home dose of losartan/HCT will be increased to 100/25 one daily patient will be continued on Norvasc 10 mg daily and Coreg 3.125 mg twice daily she will follow with her primary care physician in 2-3 days she will also follow with cardiology in 1-2 weeks patient was seen by Dr. Orta orthophoto tech/draftsman during this admission Patient Condition at Discharge: Good Plan - Discharge Summary Discharge Rx Participant: No New Discharge Prescriptions: New amLODIPine BESYLATE [Norvasc] 10 mg PO DAILY #30 tablet amLODIPine [Norvasc] 10 mg PO DAILY tab Losartan-Hctz 50-12.5 mg [Hyzaar 50-12.5] 2 each PO DAILY tab Continue Aspirin 81 mg PO HS Carvedilol [Coreg] 3.125 mg PO BID Discharge Medication List Aspirin 81 mg PO HS 10/28/14 [History] Carvedilol [Coreg] 3.125 mg PO BID 07/08/18 [History] amLODIPine BESYLATE [Norvasc] 10 mg PO DAILY #30 tablet 07/11/18 [Rx] Losartan-Hctz 50-12.5 mg [Hyzaar 50-12.5] 2 each PO DAILY tab 07/13/18 [Rx] amLODIPine [Norvasc] 10 mg PO DAILY tab 07/13/18 [Rx] Follow up Appointment(s)/Referral(s): Charlette Crain MD [Primary Care Provider] - 1-2 days Rajesh Noyola MD [STAFF PHYSICIAN] - 2 Weeks (Please check your blood pressure daily and record in a journal to bring with you to your follow up appointment with Dr. Noyola. Check at different times each day after you have been sitting with your feet on the ground for 5 minutes. ) Christoph Gonzales MD [STAFF PHYSICIAN] - 3 Weeks Activity/Diet/Wound Care/Special Instructions: Diet heart healthy Activity as tolerated Please arrange for outpatient EEG setting per neurology Discharge Disposition: HOME SELF-CARE
--- NOTE | 2018-07-13 11:05 | EEG ---
ELECTROENCEPHALOGRAM REPORT DATE OF SERVICE: 07/12/2018 REASON FOR TESTING: Transient ischemic attack. DESCRIPTION OF THE PROCEDURE: This EEG was performed using a 21 channel digital electroencephalograph, following international 10-20 system. DESCRIPTION OF THE RECORDING: From the beginning of the tracing, with patient's eyes closed, the background rhythm was mostly consisting of 9 Hz alpha frequency in the posterior occipital leads. No obvious asymmetry is seen. Occasional movement artifacts are noticed. Photic stimulation was performed with a minimal driving response seen. No pathological waves were elicited. Hyperventilation was not performed. The patient remains awake throughout the tracing. No epileptiform discharges were seen. Her EKG lead showed a regular rate and rhythm. INTERPRETATION: This awake EEG can be considered within normal limits. There was no asymmetry seen. No epileptiform discharges were noticed. The absence of epileptiform discharges does not rule out the diagnosis of epilepsy; therefore clinical correlation is recommended. MMDERRICKL / IJN: [id number] /
--- NOTE | 2018-07-13 15:05 | PN ---
PROGRESS NOTE Mrs. Ta is a 77-year-old female who presented with symptoms of dizziness, was found to have hypertension. She is doing better today, ambulating. She denies any dizziness. No palpitation. No syncope. She is in sinus mechanism. Continues to be on aspirin once a day, amlodipine 10 mg daily, losartan HCT 100/25 mg daily. PHYSICAL EXAMINATION: Blood pressure 160/50 with the heart rate in the 70s. LUNGS: Clear. HEART: Regular rate and rhythm. S1, S2. No S3. No rub. ABDOMEN: Soft, nontender. EXTREMITIES: No edema. LAB DATA: Lab data revealed BUN and creatinine 19 and 0.87. Potassium 3.8. Hemoglobin 14.9. IMPRESSION: 1. Hypertension, under better control. 2. Dizziness, improving. RECOMMENDATION: Patient will be discharged home today and followed as an outpatient. MMDERRICKL / LESLEY: [id number] /
[2018-07-14] MEDS ORDERED: LOSARTAN-HCTZ 50-12.5 MG 1 EACH TAB PO SCH (09:00)
--- NOTE | 2018-07-16 10:55 | CDI ---
Last Revision, July 2017 Documentation Clarification Form Date: 07/16/18 From: Joan Wilmer Katheryn Chatman, College Coach Hours-8:30 am & 5 pm MShanel Admit Date: 07/08/2018 6:20:00 PM Patient Name: Montse Ta Visit Number: [id number] Discharge Date: 07/13/18 ATTENTION: The Clinical Documentation Specialists (CDI) and [facility] Coding Staff appreciate your assistance in clarifying documentation. Please respond to the clarification below the line at the bottom and electronically sign. The CDI & [facility] Coding staff will review the response and follow-up if needed. Please note: Queries are made part of the Legal Health Record. If you have any questions, please contact the author of this message via ITS. Abdirizak Lobo MD TIA is documented as a diagnosis in the consult, PNs 07/10, 07/11, 07/12 and DS. Patient history/risk factors: hypertensive emergency Clinical indicators: CT head: no acute intracranial hemorrhage. Mild to moderate diffuse age- related cerebral atrophy and moderate to severe chronic small vessel ischemic change. Carotid US: Moderate degree of grayscale atheromatous plaquing with no sonographically evident hemodynamically significant stenosis within the internal carotid arteries or common carotid arteries. Echo: Moderate aortic regurgitation, mild tricuspid regurgitation Treatment: Norvasc 10 mg daily, Losartan/Hydrochlorothiazied 100/25 mg daily, Consult: Neuro In your professional opinion, please specify underlying etiology of the transient ischemic attack: Hypertension Athermotaous plaque Small vessel ischemia Carotid Sinus Syncope Carotid Stenosis Vertebo-Basilar Artery Syndrome Other (please specify): Etiology unknown or Unable to determine Please continue to document in your progress notes and discharge summary in order to capture severity of illness and risk of mortality. Include clinical findings that support your diagnosis. hypertension MTDD
== END 2018-07-13 16:15 | disposition home or self-care (01) | DRG 69 ==
LOC: EC 11:46 → 4SSUR 18:20
PROVIDERS: ADMIT Internal Medicine; ATTEND Internal Medicine
DX: G45.9 Transient cerebral ischemic attack, unspecified (principal); I16.1 Hypertensive emergency; H53.123 Transient visual loss, bilateral; I27.20 Pulmonary hypertension, unspecified; I08.2 Rheumatic disorders of both aortic and tricuspid valves; T46.5X5A Adverse effect of other antihypertensive drugs, initial encounter; T44.7X6A Underdosing of beta-adrenoreceptor antagonists, initial encounter; I10 Essential (primary) hypertension; M19.90 Unspecified osteoarthritis, unspecified site; G25.1 Drug-induced tremor; R55 Syncope and collapse; L27.1 Localized skin eruption due to drugs and medicaments taken internally; Z91.128 Patient's intentional underdosing of medication regimen for other reason; Z79.82 Long term (current) use of aspirin; Z79.899 Other long term (current) drug therapy; Z88.5 Allergy status to narcotic agent; Z87.820 Personal history of traumatic brain injury; Z90.710 Acquired absence of both cervix and uterus; Z96.659 Presence of unspecified artificial knee joint; Z98.42 Cataract extraction status, left eye; Z98.41 Cataract extraction status, right eye; Z88.0 Allergy status to penicillin; Z88.2 Allergy status to sulfonamides; Z88.8 Allergy status to other drugs, medicaments and biological substances; Z91.041 Radiographic dye allergy status; Z80.9 Family history of malignant neoplasm, unspecified
CPT/HCPCS: 36415; 70450; 71046; 80053; 80061; 81003; 82550; 82553; 83090; 83735; 84484; 85025; 85379; 85610; 85652; 85730; 86140; 93005; 93306; 93880; 93975; 95816; 96361; 96374; 99285

== ENCOUNTER 2019-05-05 22:10 | Emergency (ER) | payer MEDICARE, BC ==
[2019-05-05] MEDS ORDERED: SODIUM CHLORIDE 0.9% 1,000 ML IV STA (22:13)
[2019-05-05 22:23] VITALS: RESP 16
[2019-05-05] MEDS ORDERED: MORPHINE SULFATE 4 MG/ML SYRINGE IVP STA (23:03)
[2019-05-05] MEDS ORDERED: ONDANSETRON 4 MG/2 ML VIAL IVP STA (23:03)
--- NOTE | 2019-05-05 23:05 | ED ---
Fall HPI - General Chief Complaint: Fall Stated Complaint: Fall,Head Lac Time Seen by Provider: 05/05/19 22:13 Source: patient, EMS, RN notes reviewed, old records reviewed Mode of arrival: EMS Limitations: altered mental status - History of Present Illness Initial Comments: This is a 70-year-old female the ER for evaluation presents today for evaluation regarding fall. Patient believes she was without complaints prior fall she had a fall she had no significant bleeding from head, patient was found by that the phone to be mildly altered. EMS placed patient in, patient is able to answer questions appropriately, per EMS she says 14, patient's of his complaining of severe headache nausea no vomiting. Patient is not on blood thinners per history. Patient denies any complaints of neck pain, no back pain no buttocks pain and moving all extremities MD Complaint: fall -: unknown Fall From: standing When Fall Occurred: 1 hour [employer] Fall Witnessed: yes, by family Place Fall Occurred: home Loss of Consciousness: none Prolonged Down Time?: no Symptoms Prior to Fall: none Location: head, face Severity: moderate Severity scale (1-10): 4 Quality: aching Context: tripped/slipped Associated Symptoms: headache, confusion - Related Data Home Medications Medication Instructions Recorded Confirmed Aspirin 81 mg PO HS 10/28/14 05/05/19 Carvedilol [Coreg] 1.56 mg PO BID 07/08/18 05/05/19 Cholecalciferol (Vitamin D3) 2,000 unit PO DAILY 05/05/19 05/05/19 [Vitamin D3] Allergies Allergy/AdvReac Type Severity Reaction Status Date / Time Iodine and Iodide Containing Allergy Unknown Verified 05/05/19 22:55 Produc Penicillins Allergy Rash/Hives Verified 05/05/19 22:55 Sulfa (Sulfonamide Allergy Rash/Hives Verified 05/05/19 22:55 Antibiotics) codeine AdvReac Nausea & Verified 05/05/19 22:55 Vomiting hydralazine AdvReac Unknown Verified 05/05/19 22:55 Pain meds AdvReac Unknown Uncoded 05/05/19 22:24 Review of Systems ROS Statement: Those systems with pertinent positive or pertinent negative responses have been documented in the HPI. ROS Other: All systems not noted in ROS Statement are negative. Past Medical History Past Medical History: Hypertension Additional Past Medical History / Comment(s): heart murmer,arthritis, concussion History of Any Multi-Drug Resistant Organisms: None Reported Past Surgical History: Back Surgery, Hysterectomy, Joint Replacement, Tons illectomy Additional Past Surgical History / Comment(s): disectomy, cataracts Additional Past Anesthesia/Blood Transfusion Reaction / Comment(s): wakes up very slow, "does not take a lot" Past Psychological History: No Psychological Hx Reported Smoking Status: Never smoker Past Alcohol Use History: Occasional Past Drug Use History: None Reported - Past Family History Brother(s) Family Medical History: Cancer General Exam - General Exam Comments Initial Comments: GCS 15 Airways patent, trach is midline breath sounds are equal bilaterally Limitations: altered mental status General appearance: alert, in no apparent distress Head exam: Present: normocephalic, normal inspection. Absent: atraumatic (Significant bleeding and edema face, patient doesn't scalp laceration 3 cm left temporal, frontal forehead) Eye exam: Present: normal appearance, PERRL, EOMI. Absent: scleral icterus, conjunctival injection, periorbital swelling ENT exam: Present: normal exam, mucous membranes moist Neck exam: Present: normal inspection. Absent: tenderness, meningismus, lymphadenopathy Respiratory exam: Present: normal lung sounds bilaterally. Absent: respiratory distress, wheezes, rales, rhonchi, stridor Cardiovascular Exam: Present: regular rate, normal rhythm, normal heart sounds. Absent: systolic murmur, diastolic murmur, rubs, gallop, clicks GI/Abdominal exam: Present: soft, normal bowel sounds. Absent: distended, tenderness, guarding, rebound, rigid Extremities exam: Present: normal inspection, full ROM, normal capillary refill. Absent: tenderness, pedal edema, joint swelling, calf tenderness Back exam: Present: normal inspection Neurological exam: Present: alert, oriented X3, CN II-XII intact Psychiatric exam: Present: normal affect, normal mood Skin exam: Present: warm, dry, intact, normal color. Absent: rash Course Vital Signs 05/05/19 05/05/19 05/05/19 22:15 23:19 23:29 Temperature 98.1 F 97.1 F L Pulse Rate 66 70 64 Respiratory 16 16 16 Rate Blood Pressure 160/60 154/45 144/42 O2 Sat by Pulse 97 97 100 Oximetry - Reevaluation(s) Reevaluation #1: 05/05/19 23:17 Medical records reviewed Reevaluation #2: 05/05/19 23:17 Patient does have significant intracranial hemorrhage communicated through radiology Reevaluation #3: 05/05/19 23:17 Spoke with patient, family. Updated and questions answered Reevaluation #4: 05/05/19 23:17 Patient given headache and nausea control, blood pressure is appropriate - Consultations Consultation #1: Spoke with [facility] was agreeable for acceptance of transfer Procedures - Laceration Laceration #1 Consent Obtained: verbal consent, emergent situation Indication: laceration Site: scalp (Left Temporal/Frontal) Size (cm): 3 Description: linear Depth: simple, single layer Anesthetic Used: lidocaine 1%, with epi Anesthesia Technique: local infiltration Pre-repair: wound explored (noted arterial bleeding), irrigated extensively Type of Sutures: nylon, vicryl (subQ for bleeding) Size of Sutures: 3-0 Technique: simple, interrupted Patient Tolerated Procedure: well Medical Decision Making - Medical Decision Making 70 female the ER for evaluation of altered mental status. Patient acutely awake and alert Richard 15 complaining of headache. Patient is found of right intraparenchymal hemorrhage, intraventricular hemorrhage, patient be transferred to [facility] for neurosurgical evaluation. CT C-spine negative for acute disease - Lab Data Result diagrams: 05/05/19 22:54 05/05/19 22:54 Lab Results 05/05/19 05/05/19 05/05/19 Range/Units 22:54 22:54 22:54 WBC 16.8 H (3.8-10.6) k/uL RBC 4.14 (3.80-5.40) m/uL Hgb 12.8 (11.4-16.0) gm/dL Hct 37.3 (34.0-46.0) % MCV 90.2 (80.0-100.0) fL MCH 30.9 (25.0-35.0) pg MCHC 34.3 (31.0-37.0) g/dL RDW 15.7 H (11.5-15.5) % Plt Count 206 (150-450) k/uL Neutrophils % 88 % Lymphocytes % 5 % Monocytes % 5 % Eosinophils % 0 % Basophils % 0 % Neutrophils # 14.8 H (1.3-7.7) k/uL Lymphocytes # 0.9 L (1.0-4.8) k/uL Monocytes # 0.8 (0-1.0) k/uL Eosinophils # 0.1 (0-0.7) k/uL Basophils # 0.1 (0-0.2) k/uL PT (9.0-12.0) sec INR (<1.2) APTT (22.0-30.0) sec Sodium 134 L (137-145) mmol/L Potassium 4.3 (3.5-5.1) mmol/L Chloride 99 (98-107) mmol/L Carbon Dioxide 27 (22-30) mmol/L Anion Gap 8 mmol/L BUN 17 (7-17) mg/dL Creatinine 0.55 (0.52-1.04) mg/dL Est GFR (CKD-EPI)AfAm >90 (>60 ml/min/1.73 sqM) Est GFR (CKD-EPI)NonAf >90 (>60 ml/min/1.73 sqM) Glucose 171 H (74-99) mg/dL Calcium 9.0 (8.4-10.2) mg/dL Phosphorus 3.4 (2.5-4.5) mg/dL Magnesium 2.3 (1.6-2.3) mg/dL Total Bilirubin 0.6 (0.2-1.3) mg/dL AST 31 (14-36) U/L ALT 22 (9-52) U/L Alkaline Phosphatase 64 (38-126) U/L Creatine Kinase 71 (30-135) U/L Troponin I (0.000-0.034) ng/mL NT-Pro-B Natriuret Pep 347 pg/mL Total Protein 6.4 (6.3-8.2) g/dL Albumin 4.0 (3.5-5.0) g/dL 05/05/19 05/05/19 Range/Units 22:54 22:54 WBC (3.8-10.6) k/uL RBC (3.80-5.40) m/uL Hgb (11.4-16.0) gm/dL Hct (34.0-46.0) % MCV (80.0-100.0) fL MCH (25.0-35.0) pg MCHC (31.0-37.0) g/dL RDW (11.5-15.5) % Plt Count (150-450) k/uL Neutrophils % % Lymphocytes % % Monocytes % % Eosinophils % % Basophils % % Neutrophils # (1.3-7.7) k/uL Lymphocytes # (1.0-4.8) k/uL Monocytes # (0-1.0) k/uL Eosinophils # (0-0.7) k/uL Basophils # (0-0.2) k/uL PT 10.1 (9.0-12.0) sec INR 0.9 (<1.2) APTT 22.0 (22.0-30.0) sec Sodium (137-145) mmol/L Potassium (3.5-5.1) mmol/L Chloride (98-107) mmol/L Carbon Dioxide (22-30) mmol/L Anion Gap mmol/L BUN (7-17) mg/dL Creatinine (0.52-1.04) mg/dL Est GFR (CKD-EPI)AfAm (>60 ml/min/1.73 sqM) Est GFR (CKD-EPI)NonAf (>60 ml/min/1.73 sqM) Glucose (74-99) mg/dL Calcium (8.4-10.2) mg/dL Phosphorus (2.5-4.5) mg/dL Magnesium (1.6-2.3) mg/dL Total Bilirubin (0.2-1.3) mg/dL AST (14-36) U/L ALT (9-52) U/L Alkaline Phosphatase (38-126) U/L Creatine Kinase (30-135) U/L Troponin I 0.016 (0.000-0.034) ng/mL NT-Pro-B Natriuret Pep pg/mL Total Protein (6.3-8.2) g/dL Albumin (3.5-5.0) g/dL - EKG Data -: EKG Interpreted by Me (EKG shows sinus rhythm at 62. QRS 156, QRS 70, QTc 444) - Radiology Data Radiology results: report reviewed (T brain C-spine positive for significant right sided intracranial hemorrhage), image reviewed Critical Care Time Critical Care Time: Yes Total Critical Care Time: 31 Disposition Clinical Impression: Fall, Syncope, Laceration of forehead, left, complicated, Intracranial hemorr brii Disposition: OTHER INSTITUTION NOT DEFINED Condition: Serious Is patient prescribed a controlled substance at d/c from ED?: No Referrals: Charlette Crain MD [Primary Care Provider] - 1-2 days - Out of Hospital Transfer - Req. Specs Out of Hospital Transfer - Requested Specifics: Other Emergency Center ([facility] [place])
[2019-05-05 23:31] LABS: Basophils # (A) 0.1 k/uL (0-0.2); Basophils % (A) 0 %; Eosinophils # (A) 0.1 k/uL (0-0.7); Eosinophils % (A) 0 %; HCT 37.3 % (34.0-46.0); HGB 12.8 gm/dL (11.4-16.0); Lymphocytes # (A) 0.9 k/uL (1.0-4.8); Lymphocytes % (A) 5 %; MCH 30.9 pg (25.0-35.0); MCHC 34.3 g/dL (31.0-37.0); MCV 90.2 fL (80.0-100.0); Mean Platelet Volume 8.8; Monocytes # (A) 0.8 k/uL (0-1.0); Monocytes % (A) 5 %; Neutrophils # (A) 14.8 k/uL (1.3-7.7); Neutrophils % (A) 88 %; Platelet Count 206 k/uL (150-450); RBC 4.14 m/uL (3.80-5.40); RDW 15.7 % (11.5-15.5); WBC 16.8 k/uL (3.8-10.6)
[2019-05-05 23:32] VITALS: BP 144/42; PULSE 64; TEMP 97.1
[2019-05-05 23:35] LABS: ALT 22 U/L (9-52); AST 31 U/L (14-36); African American GFR (CKD) >90 (>60 ml/min/1.73 sqM); Alkaline Phosphatase 64 U/L (38-126); Anion Gap 8 mmol/L; Blood Urea Nitrogen 17 mg/dL (7-17); Carbon Dioxide 27 mmol/L (22-30); Chloride 99 mmol/L (98-107); Creatine Kinase 71 U/L (30-135); Glucose 171 mg/dL (74-99); Magnesium 2.3 mg/dL (1.6-2.3); Phosphorus 3.4 mg/dL (2.5-4.5); Potassium 4.3 mmol/L (3.5-5.1); Sodium 134 mmol/L (137-145); Total Bilirubin 0.6 mg/dL (0.2-1.3); Total Protein 6.4 g/dL (6.3-8.2)
[2019-05-05 23:36] LABS: INR 0.9 (<1.2); Prothrombin Time 10.1 sec (9.0-12.0)
--- NOTE | 2019-05-05 23:47 | CT ---
EXAM: CT Head Without Intravenous Contrast CLINICAL HISTORY: ITS.REASON CT Reason: fall TECHNIQUE: Axial computed tomography images of the head/brain without intravenous contrast. DLP is 1174.7 mGy-cm. This CT exam was performed using one or more of the following dose reduction techniques: automated exposure control, adjustment of the mA and/or kV according to patient size, and/or use of iterative reconstruction technique. COMPARISON: CT head angiogram 06/26/2017. FINDINGS: Brain: Global parenchymal volume loss with chronic microvascular ischemic changes. No hemorrhage. Ventricles: Large right parieto-occipital intraparenchymal hematoma measuring 3.7 x 6.9 x 3.5 cm with decompression into the right lateral ventricle. Intraventricular hemorrhage near completely casts the right lateral ventricle. Small amount of intraventricular blood is seen in the left lateral ventricle and the third ventricle. There is hydrocephalus with probable transependymal flow. There is edema about the intraparenchymal hematoma. There is no significant midline shift or herniation. Trace subarachnoid blood is seen in the interpeduncular fossa. Subdural hematoma is seen along the right tentorial leaflet as well as trace right parafalcine subdural hematoma. Hematoma along the tentorial leaflet measures up to 6 mm thickness. Bones/joints: Unremarkable. No acute fracture. Soft tissues: Subcutaneous emphysema along the left frontotemporal scalp presumably related to scalp laceration. Sinuses: Unremarkable as visualized. No acute sinusitis. Mastoid air cells: Unremarkable as visualized. No mastoid effusion. Orbits: Bilateral lens replacement. IMPRESSION: 1. Large right parieto-occipital intraparenchymal hematoma with decompression into the right lateral ventricle and appearance of hydrocephalus with transependymal flow. Recommend neurosurgery consultation. 2. Small right parafalcine and right tentorial leaflet subdural hematomas. No significant mass effect or midline shift. 3. Global parenchymal volume loss with chronic microvascular ischemic changes. 4. Subcutaneous emphysema along the left frontotemporal scalp presumably related to scalp laceration. EXAM: CT Cervical Spine Without Intravenous Contrast CLINICAL HISTORY: ITS.REASON CT Reason: fall TECHNIQUE: Axial computed tomography images of the cervical spine without intravenous contrast. DLP is 1174.7 mGy-cm. This CT exam was performed using one or more of the following dose reduction techniques: automated exposure control, adjustment of the mA and/or kV according to patient size, and/or use of iterative reconstruction technique. COMPARISON: CT neck angiogram 06/26/2017. FINDINGS: Vertebrae: See below. 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 Multilevel degenerative disc disease and facet arthrosis is seen in the cervical spine, most significant at C3-C4 and C6-C7. There is no high-grade spinal canal stenosis. Soft tissues: Unremarkable. Lung apices: Scarring in the lung apices. IMPRESSION: No fracture or traumatic malalignment of the cervical spine. <MYCVCSECTION> Critical Value Communications 05/05/19 23:51 Call Doctor Regarding Intracranial Hemorrhage, called Dr. BRADY on 05/05 23:51 (-04:00)
--- NOTE | 2019-05-06 00:17 | XR ---
EXAM: XR Chest, 1 View CLINICAL HISTORY: ITS.REASON XR Reason: Weakness TECHNIQUE: Frontal view of the chest. COMPARISON: Chest radiographs 07/08/2018. FINDINGS: Lungs: Unremarkable. No consolidation. Pleural space: Unremarkable. No pneumothorax. Heart: Unremarkable. No cardiomegaly. Mediastinum: Unremarkable. Bones/joints: Unremarkable. Vasculature: Atherosclerotic calcification of the thoracic aorta. IMPRESSION: No acute cardiopulmonary abnormality.
== END 2019-05-06 00:15 | disposition short-term general hospital (02) ==
LOC: EC 22:10
DX: S06.300A Unspecified focal traumatic brain injury without loss of consciousness, initial encounter (principal); S01.81XA Laceration without foreign body of other part of head, initial encounter; R40.2412 Glasgow coma scale score 13-15, at arrival to emergency department; I10 Essential (primary) hypertension; M19.90 Unspecified osteoarthritis, unspecified site; Z88.0 Allergy status to penicillin; Z88.2 Allergy status to sulfonamides; Z88.5 Allergy status to narcotic agent; Z88.8 Allergy status to other drugs, medicaments and biological substances; Z91.041 Radiographic dye allergy status; Z79.82 Long term (current) use of aspirin; Z79.899 Other long term (current) drug therapy; Z96.60 Presence of unspecified orthopedic joint implant; W01.0XXA Fall on same level from slipping, tripping and stumbling without subsequent striking against object, initial encounter; Y92.009 Unspecified place in unspecified non-institutional (private) residence as the place of occurrence of the external cause
CPT/HCPCS: 36415; 93005; 83880; 80053; 82550; 83735; 84100; 84484; 85025; 85610; 85730; 71045; 72125; 70450; 99291; 12052; 96374; 96375; 96361; J2270; J2405